=== PATIENT | female | born 1975 | race Caucasian/White ===

== ENCOUNTER 2020-02-29 09:31 | Outpatient (CLI) | payer OTHER, SELFPAY ==
--- NOTE | ~2020-02-29 | MM_ITS ---
EXAMINATION: MM screening [facility] w khurram HISTORY: Screening mammogram TECHNIQUE: Craniocaudal and mediolateral oblique 3-D tomosynthesis images were obtained and synthetic 2-D images were generated. CAD analysis was submitted and interpreted. COMPARISON: Comparison to multiple prior studies sequentially, with oldest reviewed study dated 08/24. BREAST PARENCHYMAL COMPOSITION: The breasts are heterogeneously dense, which may obscure small masses . FINDINGS: There is no evidence of suspicious mass, calcification, or architectural distortion to sugg est malignancy in either breast. There has been no suspicious interval change. IMPRESSION: 1. No mammographic evidence of malignancy. 2. Recommend routine screening mammography in one year. BI-RADS Category 1: Negative Reviewed, dictated and finalized at location A.
== END 2020-02-29 09:32 | disposition home or self-care (01) ==
LOC: ANHIMG 09:37
PROVIDERS: Visit Provider Obstetrics & Gynecology
DX: Z12.31 Encounter for screening mammogram for malignant neoplasm of breast (principal)
CPT/HCPCS: 77063; 77067

== ENCOUNTER 2021-03-21 15:55 | Outpatient (CLI) | payer OTHER, SELFPAY ==
--- NOTE | ~2021-03-21 | MM_ITS ---
EXAMINATION: MM screening [facility] w khurram HISTORY: Screening TECHNIQUE: Craniocaudal and mediolateral oblique 3-D tomosynthesis images were obtained and synthetic 2-D images were generated. CAD analysis was submitted and interpreted. COMPARISON: Comparison to multiple prior studies sequentially, with oldest reviewed study dated 08/24. BREAST PARENCHYMAL COMPOSITION: The breasts are heterogeneously dense, which may obscure small masses . FINDINGS: There is focal asymmetry in the subareolar location of the left breast on MLO view. The rig ht breast is stable without evidence for malignancy. IMPRESSION: 1. Subtle left breast asymmetry on MLO view. 2. Additional mammographic views and possible breast ultrasound are recommended. BI-RADS Category 0: Incomplete: Needs additional imaging evaluation. Reviewed, dictated and finalized at location A. IMPRESSION: 1. Subtle left breast asymmetry on MLO view. 2. Additional mammographic views and possible breast ultrasound are recommended . BI-RADS Category 0: Incomplete: Needs additional imaging evaluation.
== END 2021-03-21 15:56 | disposition home or self-care (01) ==
PROVIDERS: Visit Provider Obstetrics & Gynecology
DX: Z12.31 Encounter for screening mammogram for malignant neoplasm of breast (principal); R92.8 Other abnormal and inconclusive findings on diagnostic imaging of breast
CPT/HCPCS: 77063; 77067

== ENCOUNTER 2021-04-18 12:17 | Outpatient (CLI) | payer OTHER, SELFPAY ==
--- NOTE | ~2021-04-18 | MM_ITS ---
EXAMINATION: MM diagnostic mammo unilat LT HISTORY: A subtle left breast asymmetry on screening MLO view of 03/21/2021 TECHNIQUE: Additional 3-D tomosynthesis images of the left breast were performed and synthetic 2-D im ages were generated. CAD analysis was submitted and interpreted. COMPARISON: 03/21/2021 bilateral digital screening mammogram FINDINGS: No reproducible mass or architectural distortion is evident. IMPRESSION: 1. No mammographic evidence of malignancy 2. Routine mammographic screening is recommended BI-RADS Category 1: Negative Reviewed, dictated and finalized at location A.
== END 2021-04-18 12:18 | disposition home or self-care (01) ==
LOC: ANHIMG 12:19
PROVIDERS: Visit Provider Obstetrics & Gynecology
DX: R92.8 Other abnormal and inconclusive findings on diagnostic imaging of breast (principal)
CPT/HCPCS: 77065

== ENCOUNTER 2022-08-28 16:15 | Outpatient (CLI) | payer OTHER, SELFPAY ==
--- NOTE | ~2022-08-28 | MM_ITS ---
EXAMINATION: MM screening [facility] BI w khurram HISTORY: Screening mammogram TECHNIQUE: Craniocaudal and mediolateral oblique 3-D tomosynthesis images were obtained and synthetic 2-D images were generated. CAD analysis was submitted and interpreted. COMPARISON: 04/18/2021, 03/21/2021, 03/20/2020 BREAST PARENCHYMAL COMPOSITION: The breasts are heterogeneously dense, which may obscure small masses . FINDINGS: No suspicious mass, calcification, or architectural distortion are identified in either angelina ast to suggest malignancy. There has been no suspicious interval change. IMPRESSION: 1. No mammographic evidence of malignancy. 2. Recommend routine screening mammography in one year. BI-RADS Category 1: Negative Reviewed, dictated and finalized at location A. RVISOR YARD
== END 2022-08-28 16:16 | disposition home or self-care (01) ==
PROVIDERS: Visit Provider Internal Medicine
DX: Z12.31 Encounter for screening mammogram for malignant neoplasm of breast (principal)
CPT/HCPCS: 77063; 77067

== ENCOUNTER 2024-09-14 07:54 | Outpatient (CLI) | payer OTHER, SELFPAY ==
--- NOTE | ~2024-09-14 | MM_ITS ---
EXAMINATION: MM screening [facility] BI w khurram HISTORY: Screening TECHNIQUE: Craniocaudal and mediolateral oblique 3-D tomosynthesis images were obtained and synthetic 2-D images were generated. CAD analysis was submitted and interpreted. COMPARISON: Examination was compared with multiple prior studies performed most recently on 08/28/2022 and dating back to 02/26/2019 BREAST PARENCHYMAL COMPOSITION: The breasts are heterogeneously dense, which may obscure small masses . FINDINGS: Stable parenchymal pattern without suspicious microcalcifications, architectural distortion, discrete masses or significant asymmetry. Punctate calcifications detected bilaterally, stable and benign in appearance. IMPRESSION: 1. No mammographic evidence of malignancy. 2. Recommend routine screening mammography in one year. BI-RADS Category 2: Benign findings Reviewed, dictated and finalized at location A. INSTRUCTOR
--- OUTSIDE RECORDS SUMMARY | 2024-09-21 11:16 | XMS_ITS | Clinical Summary ---
Author Organization [facility] Address [address] [place] [address]. 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 DIRECTOR Gender Identity Not on file Sexual Orientation Not on file Plan of Treatment Health Maintenance Due Date Last Done Comments Cervical Cancer Screening Pa p Smear (Age 30 to 64) Every 3 Years 1973 Colorectal Cancer Screening Colonoscopy (10 Years) 1973 Annual Physical 1976 Hepatitis C 1991 Hepatitis B Vaccines (1 of 3 - 19+ 3-dose series) 1992 Cervical Cancer Screening Pa p with HPV Testing (Age 30 to 64) Every 5 Years 2003 Cervical Cancer Screening wi th HPV 2003 Mammogram Screening 2013 DTaP, Tdap and Td Vaccines ( 2 - Td or Tdap) 11/29/2019 11/28/2009 Zoster Vaccines (1 of 2) 2023 COVID-19 Vaccine (3 - 2023-2 5 season) 2024 10/25/2020, 09/27/2020 Influenza Adult (#1) 2024 07/31/2019, 07/28/2018 Meningococcal Vaccine Aged Out No kayden kranthi eligible based on patient's age to complete this topic Pneumococcal Vaccine: Pediatrics (0 to 5 Years) and At-Risk Patients (6 to 64 Years) Aged Out No longer eligible b ased on patient's age to complete this topic RSV Immunizations Under 20 Months Aged Out No longer eligible b ased on patient's age to complete this topic Care Teams Hammer Repairer Relationship Specialty Start Date End Date Non-Staff, Provider PCP - General 09/27/21
--- OUTSIDE RECORDS SUMMARY | 2024-09-21 11:16 | XMS_ITS | Encounter Summary ---
Author Organization [facility] Address [address] [place] [address]. [place] [address] [place] [address] Care Team Providers Care Penciller Name Role Phone Non-Staff, Provider Primary Care Provider Ino lassiter Encounter Details Date Type Department Care Team (Late st Contact Info) Description 06/28/2022 7:00 AM CDT Laboratory Only [facility] [address] [place] [address] Lex Alva MD [address] [place] [address] Social History Tobacco Use Types Packs/Day Years Used Date Smoking Tobacco: Never Assessed Comments Unknown Sex and Gender Information Value Date Recorded Sex Assigned at Not on file Legal Sex Female 6:13 PM CADDIE Gender Identity Not on file Sexual Orientation Not on file COVID-19 Exposure Response Date Recorded In the last 10 days, have yo u been in contact with someone who was confirmed or suspected to have Coronavirus/COVID-19? No / Unsure 06/28/2022 6:53 AM CDT documented as of this encounter Plan of Treatment Not on file documented as of this encounter Procedures Procedure Name Priority Date/Time Associated Diagnosis Comments HEMOGLOBIN, GLYCOSYLATED Routine 06/28/2022 7:17 AM CDT LIPID PANEL Routine 06/28/2022 7:17 AM CDT THYROID STIM HORMONE TSH Routine 06/28/2022 7:17 AM CDT VITAMIN D, 25 OH Routine 06/28/2022 7:17 AM CDT documented in this encounter Results * VITAMIN D, 25 OH (06/28/2022 7:17 AM CDT) Pathologist [facility] [place] VITAMIN D 25 HYDROXY S/P/B 34 30 - 100 NG/ML 06/28/2022 9:22 AM CDT [facility] Comment: ? INTERPRETATION ? DEFICIENT ??<20 ? INSUFFICIENT 20-29 ?SUFFICIENT 30-100 06/28/2022 7:17 AM CDT Lex Alva MD LABORATORY Final Result Performing Organization Address [facility] de Phone Number [facility] [address] [place] [address], [place] [phone] * THYROID STIM HORMONE, TSH (06/28/2022 7:17 AM CDT) [facility] TSH 2.006 0.358 - 3.74 uIU/ML 06/28/2022 9:09 AM CDT [facility] Comment: HIGH DOSES OF BIOTIN MAY INTERFERE WITH THIS TEST RESULT. CORRELATION TO CLINICAL HISTORY AND PRESENTATION RECOMMENDED. 06/28/2022 7:17 AM CDT Lex Alva MD LABORATORY Final Result Performing Organization Address [facility] de Phone Number [facility] [address] [place] [address], [place] [phone] * LIPID PANEL (06/28/2022 7:17 AM CDT) [facility] CHOLESTEROL 183 <200.0 MG/DL 06/28/2022 9:09 AM CDT [facility] TRIGLYCERIDES 23 <150 MG/DL 06/28/2022 9:09 AM CDT [facility] HDL 91 >40.0 MG/DL 06/28/2022 9:09 AM CDT [facility] LDL (CALCULATED) 87 <100 MG/DL 06/28/20 9:09 AM CDT [facility] NON HDL CHOLESTEROL 92 <130 MG/DL 06/28 9:09 AM CDT [facility] CHOL/HDL RATIO 2.0 0.0 - 4.5 06/28/2022 9:09 AM CDT [facility] VLDL CALCULATION 5 5 - 55 MG/DL 06/28/2022 9:09 AM CDT [facility] LIPID INTERPRETATION 06/28/2022 9:09 AM T [facility] Comment: NIH CONCENSUS REPORT RECOMMENDATIONS: ?ADULT ?CHILD ??LOW RISK: ?CHOLESTEROL ? <200 ? <170 ?TRIGLYCERIDE ?<150 ?--- ?HDL ? >=60 ?--- ?LDL ? <100 ? <110 ??BORDERLINE: ?CHOLESTEROL ? 200-239 ?? 170-199 ?TRIGLYCERIDE ?150-199 ? --- ?HDL ?40-59 ?--- ?LDL ? 100-159 ?? 110-129 ??HIGH RISK: ?CHOLESTEROL ? >=240 ?>=200 ?TRIGLYCERIDE ?>=200 ? --- ?HDL ?<40 ?--- ?LDL ? >=160 ?>=130 06/28/2022 7:17 AM CDT us Lex Alva MD LABORATORY Final Result Performing Organization Address [facility]/ZIP Co de Phone Number [facility] [address] [place] [id number], [place] [phone] * HEMOGLOBIN, GLYCOSYLATED (06/28/2022 7:17 AM CDT) HGB A1C 5.2 <5.7 % 06/28/2022 9:12 AM CDT [facility] Comment: INCREASED RISK OF DIABETES <5.7% ?NON-DIABETES 5.7-6.4% INCREASED RISK FOR FUTURE DIABETES > OR = 6.5 CONSISTENT WITH DIABETES STANDARDS OF MEDICAL CARE IN DIABETES-2010 DIABETES CARE, 33(SUPP 1): S1-S61,2010 ESTIMATED AVG GLUCOSE 103 mg/dL 06/28/2022 9:12 AM CDT [facility] 06/28/2022 7:17 AM CDT us Lex Alva MD LABORATORY Final Result Performing Organization Address [facility]/ZIP Co de Phone Number [facility] [address] [place] [address], [place] [phone] documented in this encounter Visit Diagnoses Not on filedocumented in this encounter Care Teams Penciller Relationship Specialty Start Date End Date Non-Staff, Provider PCP - General 09/27/21 documented as of this encounter
--- OUTSIDE RECORDS SUMMARY | 2024-09-21 11:16 | XMS_ITS | Encounter Summary ---
Author Organization [facility] Address [address] [place] [address]. 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 No / Unsure 06/28/2022 6:53 AM CDT documented as of this encounter Plan of Treatment Not on file documented as of this encounter Visit Diagnoses Not on filedocumented in this encounter Care Teams Java Core Developer Relationship Specialty Start Date End Date Non-Staff, Provider PCP - General 09/27/21 documented as of this encounter
--- OUTSIDE RECORDS SUMMARY | 2024-09-21 11:17 | XMS_ITS | Referral Summary ---
Author Organization [facility] Address [address] [place] [address] Care Team Providers Care Coordinator Integrated Marketing Name Role Phone Jonathan Woods MD Primary Care Provider Allergies No known active allergies Medications albuterol HFA (PROVENTIL HFA,VENTOLIN HFA,PROAIR HFA) 90 mcg/actuation inhaler Inhale 2 puffs 4 (four) times a day 3 each 02/25/2023 Active Active Problems Problem Noted Date Diagnosed Date Positive colorectal cancer screening using Colog uard test 03/22/2023 Encounter for screening colonoscopy 03/22/2023 Atopic rhinitis 02/06/2014 Overview (12/28/2016): ALLERGIC RHINITIS NOS Immunizations Name Administration Dates Next Due Hep A, Adult 08/27/2012 Influenza, Quadrivalent, Ayde l Culture-based MDCK, Preservative Free, Antibiotic Free, Intramuscular 07/18/2022,07/22/2017 Influenza, Quadrivalent, Spl it, Intramuscular 07/31/2019 Influenza, Quadrivalent, Spl it, Preservative Free, Intramuscular 07/08/2020,07/28/2018,07/27/2018 Influenza, Trivalent, IM (MDV) 07/06/2021 Influenza, Trivalent, Preser vative Free, Intramuscular 07/12/2016 Influenza, Unspecified 07/05/2023,07/18/2022 Moderna SARS-CoV-2 Monovalen t Vaccination (12+ YRS) 07/05/2023,07/18/2022 Tdap 11/28/2009 ZOSTER Recombinant 07/05/2023 Social History Tobacco Use Types Packs/Day Years Used Date Smoking Tobacco: Never Tobacco Cessation:Counseling Given: Yes Alcohol Use Standard Drinks/Week Comments Yes 0 (1 standard drink = 0.6 oz pur e alcohol) PHQ-2 Answer Date Recorded PHQ-2 Total Score (If total score is 3 or more points, staff should administer the PHQ-9) 0 02/25/2023 Personal Safety Answer Date Recorded Have you ever been in or are you currently in a harmful physical or emotional relationship or is someone making you feel afraid or unsafe? 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 Gender Identity Not on file Sexual Orientation Not on file Last Filed Vital Signs Vital Sign Reading Time Taken Comments Blood Pressure 112/73 04/11/2023 10:34 AM CDT Pulse 53 04/11/2023 10:34 AM CDT Temperature 36.7 ??C (98 ??F) 04/11/2023 10:34 AM CDT Respiratory Rate 16 04/11/2023 10:34 AM CDT Oxygen Saturation 100% 04/11/2023 10:34 AM CDT Inhaled Oxygen Concentration - - Weight 67.1 kg (148 lb) 02/25/2023 3:44 PM CDT Height 162.6 cm (5' 4 ) 02/25/2023 3:44 PM CDT Body Mass Index 25.4 02/25/2023 3:44 PM CDT Plan of Treatment Not on file Procedures Procedure Name Priority Date/Time Associated Diagnosis Comments COLONOSCOPY 04/11/2023 9:22 AM CDT SCREENING MAMMOGRAM Schedule Routine, Read Routine (OP Routine) 08/28/2022 HM PAP SMEAR WITH HPV Routine 02/25/2019 from Last 3 Months or Most Recently Relevant to Health Maintenance Results * COLONOSCOPY (04/11/2023 9:22 AM CDT) Anatomical Region Laterality Modality Other Narrative Procedure Note Hernan Piña MD - 04/11/2023 9:22 AM CDT [facility] Patient Name: Vida Mcfadden Procedure Date: 04/11/2023 9:22 AM Date of : 1975 Admit Type: Outpatient Age: 47 Gender: Female Attending MD: Hernan Piña M.D. Room: [facility] END[facility]COPY [facility]OM 2 Note Status: Finalized Patient Profile: This is a 47 year old female with no significantpast medical history here for colonoscopy for positive Cologuard test. No prior colonoscopy and no family history of colon cancer Procedure: Colonoscopy Indications: This is the patient's first colonoscopy, Positive Cologuard test Referring MD: Jonathan Woods M.D. Providers: Hernan Piña M.D. Impression: - The examined portion of the ileum was normal. - One 5 mm polyp in the descending colon, removedwith a cold snare. Resected and retrieved. - Internal hemorrhoids. Recommendation: - Patient has a contact number available for emergencies. The signs and symptoms of potential delayed complications were discussed with thepatient. Return to normal activities tomorrow. Written discharge instructions were provided to thepatient. - Discharge patient to home (with escort). - Resume previous diet. - Continue present medications. - Await pathology results. - Repeat colonoscopy in 5 years for surveillancebased on pathology results. - Return to primary care physician as previously scheduled. Medicines: Monitored Anesthesia Care Complications: No immediate complications. Estimated Blood Loss: Estimated blood loss was minimal. Procedure: Pre-Anesthesia Assessment: - Prior to the procedure, a History and Physicalwas performed, and patient medications and allergieswere reviewed. The patient is competent. The risks and benefits of the procedure and the sedation optionsand risks were discussed with the patient. Allquestions were answered and informed consent was obtained. Patient identification and proposed procedure were verified by the physician, the anesthesiologist and the dental equipment technician in the endoscopy suite. MentalStatus Examination: normal. Prophylactic Antibiotics: The patient does not require prophylactic antibiotics. Prior Anticoagulants: The patient has taken no anticoagulant or antiplatelet agents. Afterreviewing the risks and benefits, the patient was deemed in satisfactory condition to undergo the procedure.The anesthesia plan was to use monitored anesthesiacare (MAC). Immediately prior to administration of medications, the patient was re-assessed foradequacy to receive sedatives. The heart rate, respiratory rate, oxygen saturations, blood pressure, adequacyof pulmonary ventilation, and response to care were monitored throughout the procedure. The physical status of the patient was re-assessed after the procedure. The benefits, risks and alternatives of theprocedure and sedation were discussed and informed consentwas obtained. All questions were answered. Please referto the signed informed consent document in the medical record. The scope was passed under direct vision.The Pediatric Colonoscope PCF-H190L [id number] was introduced through the anus and advanced to the the terminal ileum. The bowel preparation used wasMiralax via split dose instruction. The bowel preparationused was bisacodyl tablets via split dose instruction.The colonoscopy was performed without difficulty. The patient tolerated the procedure well. The qualityof the bowel preparation was adequate. Bowel prep was administered using a split dose. Findings: The perianal and digital rectal examinations were normal. The terminal ileum appeared normal. A 5 mm polyp was found in the descending colon. The polyp wassessile. The polyp was removed with a cold snare. Resection and retrieval were complete. Internal hemorrhoids were found during retroflexion. Hernan Piña M.D. 04/11/2023 10:40:55 AM Number of Addenda: 0 Note Initiated On: 04/11/2023 9:22 AM Procedure Code(s): --- Professional --- 89540, Colonoscopy, flexible; with removal of tumor(s), polyp(s), or other lesion(s) by snare technique --- Technical --- 76905, Colonoscopy, flexible; with removal of tumor(s), polyp(s), or other lesion(s) by snare technique Diagnosis Code(s): --- Professional --- K64.8, Other hemorrhoids D12.4, Benign neoplasm of descending colon R19.5, Other fecal abnormalities --- Technical --- K64.8, Other hemorrhoids D12.4, Benign neoplasm of descending colon R19.5, Other fecal abnormalities CPT copyright 2020 [employer]. All rights reserved. The codes documented in this report are preliminary and upon senior commercial loan officer reviewmay be revised to meet current compliance requirements. Recognized by the [employer] for promoting quality in endoscopy Hernan Piña MD ENDOSCOPY PROCEDURES Final Resul t * Screening Mammogram (08/28/2022) Anatomical Region Laterality Modality Breast N/A Mammography Jonathan Woods MD IMG MAMMO PROCEDURES Fi nal Result * HM PAP SMEAR WITH HPV (02/25/2019) Pap smear Normal Historical Provider HEALTH MAINTENANCE Final Result from Last 3 Months or Most Recently Relevant to Health [place] [address] [place] [address] [facility] [place] [address] [facility] [employer] Advance Directives For more information, please contact: [phone] * Full Code (Latest Code Status on File) Date Activated Date Inactivated Comments 04/11/2023 8:58 AM 04/11/2023 3:05 PM * Full Code Date Activated Date Inactivated Comments 04/11/2023 8:58 AM 04/11/2023 8:58 AM Care Teams Coordinator Integrated Marketing Relationship Specialty Start Date End Date Jonathan Woods MD PCP - General 08/27/12
--- OUTSIDE RECORDS SUMMARY | 2024-09-21 11:17 | XMS_ITS | Encounter Summary ---
Author Organization [facility] Address [address] [place] [address] Care Team Providers Care Education Administrative Assistant Name Role Phone Jonathan Woods MD Primary Care Provider Encounter Details Date Type Department Care Team (Late st Contact Info) Description 09/03/2022 Telephone [facility] Primary Care at [address] [place] [address] Jonathan Woods MD [address] [place] [address] [address] [place] [address] Social History Tobacco Use Types Packs/Day Years Used Date Smoking Tobacco: Never Alcohol Use Standard Drinks/Week Comments Yes 0 [...] on file Legal Sex Female 5:06 PM SENIOR COLDFUSION DEVELOPER Gender Identity Not on file Sexual Orientation Not on file documented as of this encounter Miscellaneous Notes * Telephone Encounter - Irena Templeton - 06/04/2023 8:32 AM CDT Order placed and faxed to [facility]. * Telephone Encounter - Irena Templeton - 09/03/2022 11:03 AM CST Noted. Order will be placed closer to exam due date. Performed at [facility] on 08/28/22 OR COLDFUSION DEVELOPER * Telephone Encounter - Xiao Baez MA - 09/03/2022 10:23 AM CST Patient aware Sent to referrals OR COLDFUSION DEVELOPER * Telephone Encounter - Xiao Baez MA - 09/03/2022 10:22 AM CST ----- Message from Jonathan Woods MD sent at 08/31/2022 5:21 PM SENIOR COLDFUSION DEVELOPER ----- Please tell the patient her mammograms are just fine please set up for next year's bilateral screening mammogram OR COLDFUSION DEVELOPER documented in this encounter Plan of Treatment Not on file documented as of this encounter Visit Diagnoses Not on filedocumented in this encounter Care Teams Education Administrative Assistant Relationship Specialty Start Date End Date Jonathan Woods MD PCP - General 08/27/12 documented as of this encounter
--- OUTSIDE RECORDS SUMMARY | 2024-09-21 11:17 | XMS_ITS | Encounter Summary ---
Author Organization [facility] Address [address] [place] [address] Care Team Providers Care Bus Person Dishwasher Name Role Phone Jonathan Woods MD Primary Care Provider Encounter Details Date Type Department Care Team (Late st Contact Info) Description 03/21/2023 Orders Only [facility] Primary Care at [address] [place] [address] Jonathan Woods MD [address] [place] [address] [address] [place], [place] [id number] Positive colorectal cancer screening using Cologuard test (Primary Dx) Social History Tobacco Use Types Packs/Day Years Used Date Smoking Tobacco: Never Alcohol Use Standard Drinks/Week Comments Yes 0 (1 standard drink = 0.6 oz pur e alcohol) PHQ-2 Answer Date Recorded PHQ-2 Total Score (If total score is 3 or more points, staff should administer the PHQ-9) 0 02/25/2023 Comments No Sex and Gender Information Value Date Recorded Sex Assigned at Not on file Legal Sex Female 5:06 PM UNDERWRITING 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
--- OUTSIDE RECORDS SUMMARY | 2024-09-21 11:17 | XMS_ITS | Encounter Summary ---
Author Organization [facility] Address [address] [place] [address] Care Team Providers Care Broadcast Operations Manager Name Role Phone Jonathan Woods MD Primary Care Provider Encounter Details Date Type Department Care Team (Late st Contact Info) Description 01/04/2021 Orders Only [facility] [address] [facility] [address] [place] [address] Jonathan Woods MD [address] [place] [address] [address] [place] [address] Preventative health care (Primary Dx) Social History Tobacco Use Types Packs/Day Years Used Date Smoking Tobacco: Never Alcohol Use Standard Drinks/Week Comments Yes 0 (1 standard drink = 0.6 oz pur e alcohol) PHQ-2 Answer Date Recorded PHQ-2 Score 0 05/15/2019 Comments Unknown Sex and Gender Information Value Date Recorded Sex Assigned at Not on file 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 <170 mg/dL ??Borderline high: ??170-199 mg/dL ??High: ? >or= 200 mg/dL Ages > or = 20 years ??Desirable: ?<200 mg/dL ??Borderline high: ??200-239 mg/dL ??High: ? >or= 240 mg/dL Literature References: 1. Expert Panel on Integrated Guidelines for Cardiovascular Health and Risk Reduction in Children and Adolescents. Pediatrics 2011;128:S213 2. NCEP Expert Panel. Circulation 2004;110:227 Current Interpretive Data was last revised on 2018. Triglycerides 53 <=149 mg/dL [facility] ([place]) Comment: Interpretive Data Ages < or = 9 years ??Acceptable: ? <75 mg/dL ??Borderline high: ??75-99 mg/dL ??High: ? >or= 100 mg/dL Ages 10 to 20 years ??Acceptable: ? <90 mg/dL ??Borderline high: ??90-129 mg/dL ??High: ? >or= 130 mg/dL Ages > or = 20 years ??Desirable: ?<150 mg/dL ??Borderline high: ??150-199 mg/dL ??High: ? 200-499 mg/dL ?Very high: ?? >or= 499 mg/dL Literature References: 1. Expert Panel on Integrated Guidelines for Cardiovascular Health and Risk Reduction in Children and Adolescents. Pediatrics 2011;128:S213 2. NCEP Expert Panel. Circulation 2004;110:227 Current Interpretive Data was last revised on 2018. HDL 84 >=40 mg/dL [facility] ([place]) Comment: Interpretive Data Ages < or = 19 years ??Acceptable: ? >45 mg/dL ??Borderline low: ?? 40-45 mg/dL ??Low: ? <40 mg/dL Ages > or = 20 years ??Desirable: ?>or= 60 mg/dL ??Low: ? <40 mg/dL Literature References: 1. Expert Panel on Integrated Guidelines for Cardiovascular Health and Risk Reduction in Children and Adolescents. Pediatrics 2011;128:S213 2. NCEP Expert Panel. Circulation 2004;110:227 Current Interpretive Data was last revised on 2018. LDL, calculated 71 <=129 mg/dL [facility]ALE[facility] HUDSON ([place]) Comment: Interpretive Data Ages < or = 19 years ??Acceptable: ? <110 mg/dL ??Borderline high: ??110-129 mg/dL ??High: ?>or= 130 mg/dL Ages > or = 20 years ??Optimal: ? <100 mg/dL ??Near optimal: ?100-129 mg/dL ??Borderline high: ?? 130-159 mg/dL ??High: ?>160 mg/dL Literature References: 1. Expert Panel on Integrated Guidelines for Cardiovascular Health and Risk Reduction in Children and Adolescents. Pediatrics 2011;128:S213 2. NCEP Expert Panel. Circulation 2004;110:227 Current Interpretive Data was last revised on 2018. Non-HDL Cholesterol 82 mg/dL [facility] HUDSON ([place]) Comment: Interpretive Data Ages < or = 19 years ??Acceptable: ?<120 mg/dL ??Borderline high: ??120-144 mg/dL ??High: ?>145 mg/dL Ages > or = 20 years ??When triglycerides are >200 mg/dL, Non-HDL cholesterol is a secondary target of ? therapy with treatment goals that are 30 mg/dL greater than the LDL cholesterol target. ? Literature References: 1. Expert Panel on Integrated Guidelines for Cardiovascular Health and Risk Reduction in Children and Adolescents. Pediatrics 2011;128:S213 2. NCEP Expert Panel. Circulation 2004;110:227 Current Interpretive Data was last revised on 2018. Chol/HDL ratio 2 [facility] ([place]) Blood specimen (specimen) 03/17/2021 6:43 AM CDT 03/17/2021 7:24 AM CDT Narrative [facility] ([place]) - 03/17/2021 8:38 AM CDT fasting us Jonathan Woods MD LAB BLOOD ORDERABLES Fi nal Result [facility] ([place]) [address] [facility] [place] [address] * Comprehensive metabolic panel (03/17/2021 6:43 AM CDT) Sodium 137 135 - 145 mmol/L [facility] ([place]) Potassium, pl 4.3 3.3 - 4.9 mmol/L [facility] ([place]) Chloride 103 97 - 110 mmol/L [facility] ([place]) CO2 23 22 - 32 mmol/L [facility] ([place]) Anion gap 11 2 - 15 mmol/L [facility] ([place]) BUN 20 8 - 25 mg/dL [facility] ([place]) Creatinine 0.68 0.60 - 1.10 mg/dL [facility] ([place]) Glucose 98 70 - 199 mg/dL [facility] ([place]) Comment: Interpretive Data Fasting glucose >/= 126 mg/dl is diagnostic for diabetes. ?? Fasting is defined as no caloric intake for at least 8 hours. Fasting glucose between 100 mg/dl to 125 mg/dl is diagnostic of prediabetes. In a patient with classic symptoms of hyperglycemia or hyperglycemic crisis, a random glucose >/= 200 mg/dl is diagnostic for diabetes. In the absence of unequivocal hyperglycemia, results should be confirmed by repeat testing. The classification and Diagnosis of Diabetes Diabetes Care 2017;40 (Suppl. 1):S11. Current interpretive data was last revised 2017. Calcium 9.1 8.5 - 10.3 mg/dL [facility] ([place]) Bilirubin, total 0.5 0.1 - 1.2 mg/dL [facility] ([place]) Protein, pl 6.7 6.5 - 8.5 g/dL [facility] ([place]) Albumin 4.5 3.5 - 5.0 g/dL [facility] ([place]) Alk phos 43 40 - 130 Units/L [facility] ([place]) ALT 16 7 - 45 Units/L [facility] ([place]) AST 24 10 - 45 Units/L [facility] ([place]) Blood specimen (specimen) 03/17/2021 6:43 AM CDT 03/17/2021 7:24 AM CDT Narrative [facility] ([place]) - 03/17/2021 8:38 AM CDT fasting us Jonathan Woods MD LAB BLOOD ORDERABLES Fi nal Result [facility] ([place]) [address] [facility] [place] [address] documented in this encounter Visit Diagnoses Diagnosis Preventative health care- Primary Routine general medical examination at a health care facility Preventative health care Routine general medical examination at a health care facility documented in this encounter Care Teams Broadcast Operations Manager Relationship Specialty Start Date End Date Jonathan Woods MD PCP - General 08/27/12 documented as of this encounter
--- OUTSIDE RECORDS SUMMARY | 2024-09-21 11:17 | XMS_ITS | Encounter Summary ---
Author Organization [facility] Healthcare Address [address] [place] [address] Care Team Providers Care Bilingual Sales Assistant Name Role Phone Jonathan Woods MD Primary Care Provider Reason for Visit * Auth/Cert (Routine) Specialty Diagnoses / Procedures Referred By Contac t Referred To Contact Diagnoses Positive colorectal cancer screening using Cologuard test Encounter for screening colonoscopy Positive colorectal cancer screening using Cologuard test [R19.5] Encounter for screening colonoscopy [Z12.11] Procedures WI COLONOSCOPY FLX DX W/COLLJ SPEC WHEN PFRMD COLONOSCOPY Referral ID Status Reason Start Date Expiration Date Visits Re quested Visits Authorized [id number] 1 1 Encounter Details Date Type Department Care Team (Latest Contact Info) Description 04/11/2023 8:19 AM CDT - 04/11/2023 11:00 AM CDT Hospital Encounter [facility] [address] [place] [address] Hernan Piña MD [address] [place] [address] [address] [place] [address] Positive colorectal cancer screening using Cologuard test; Encounter for screening colonoscopy Discharge Disposition: Discharge to home or self care Social History Tobacco Use Types Packs/Day Years [...] on file 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 Gender Identity Not on file Sexual Orientation Not on file documented as of this encounter Last Filed Vital Signs Vital Sign Reading Time Taken Comments Blood Pressure 112/73 04/11/2023 10:34 AM CDT Pulse 53 04/11/2023 10:34 AM CDT Temperature 36.7 ??C (98 ??F) 04/11/2023 10:34 AM CDT Respiratory Rate 16 04/11/2023 10:34 AM CDT Oxygen Saturation 100% 04/11/2023 10:34 AM CDT Inhaled Oxygen Concentration - - Weight - - Height - - Body Mass Index - - documented in this encounter Medications at Time of Discharge albuterol HFA (PROVENTIL HFA,VENTOLIN HFA,PROAIR HFA) 90 mcg/actuation inhaler Inhale 2 puffs 4 (four) times a day 3 each 11 02/25/2023 documented as of this encounter Discharge Disposition Disposition Code Departure Means Destination Comment s Discharge to home or self care documented in this encounter H&P Notes * Hernan Piña MD - 04/11/2023 8:52 AM CDT PRE-PROCEDURE HISTORY & PHYSICAL NOTE (Presedation assessment per Anesthesia Team) 04/11/2023 8:52 AM Patient: Vida Smart, date of 1975 Procedure(s) planned: Colonoscopy Indication(s): Positive Cologuard History: Patient is a 47 y.o. with no significant past medical history here for colonoscopy for positive Cologuard test. 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 Family History Problem Relation Age of Onset Diabetes type II Father 63 Diabetes -Type 2; Prostate cancer Father Cancer, prostate; reports that she has never smoked. She does not have any smokeless tobacco history on file. No current facility-administered medications on file prior to encounter. Current Outpatient Medications on File Prior to Encounter Medication Sig Dispense Refill albuterol HFA (PROVENTIL HFA,VENTOLIN HFA,PROAIR HFA) 90 mcg/actuation inhaler Inhale 2 puffs 4 (four) times a day 3 each 11 Physical Exam: There were no vitals taken for this visit. GENERAL: The patient is alert, oriented and in no apparent distress. HEENT: no jaundice LUNGS: non-labored ABDOMEN: Soft, no tenderness NEURO: Non-focal. ASA class per anesthesia Sedation Plan: Monitored Anesthesia Care (MAC) by the anesthesia team. Procedure Plan: # colonoscopy Based on the above assessment, we will perform the procedures indicated above. I have discussed the plan, risks, benefits and alternatives with the patient or guardian. When assessment above was not obtained immediately before the procedure, I have reassessed this patient and there are no changes. Hernan Piña MD documented in this encounter Procedure Notes * Hernan Piña MD - 04/11/2023 9:22 AM CDTAssociated Order(s): COLONOSCOPY [facility] Patient Name: Vida Smart Procedure Date: 04/11/2023 9:22 AM Date of : 1975 Admit Type: Outpatient Age: 47 Gender: Female Attending MD: Hernan Piña M.D. Room: [facility] 2 Note Status: Finalized Patient Profile: This is a 47 year old female with no significant past medical history here for colonoscopy for positive Cologuard test. No prior colonoscopy and no family history of colon cancer Procedure: Colonoscopy Indications: This is the patient's first colonoscopy, Positive Cologuard test Referring MD: Jonathan Woods M.D. Providers: Hernan Piña M.D. Impression: - The examined portion of the ileum was normal. - One 5 mm polyp in the descending colon, removed with a cold snare. Resected and retrieved. - Internal hemorrhoids. Recommendation: - Patient has a contact number available for emergencies. The signs and symptoms of potential delayed complications were discussed with the patient. Return to normal activities tomorrow. Written discharge instructions were provided to the patient. - Discharge patient to home (with escort). - Resume previous diet. - Continue present medications. - Await pathology results. - Repeat colonoscopy in 5 years for surveillance based on pathology results. - Return to primary care physician as previously scheduled. Medicines: Monitored Anesthesia Care Complications: No immediate complications. Estimated Blood Loss: Estimated blood loss was minimal. Procedure: Pre-Anesthesia Assessment: - Prior to the procedure, a History and Physical was performed, and patient medications and allergies were reviewed. The patient is competent. The risks and benefits of the procedure and the sedation options and risks were discussed with the patient. All questions were answered and informed consent was obtained. Patient identification and proposed procedure were verified by the physician, the anesthesiologist and the dental lab technician in the endoscopy suite. Mental Status Examination: normal. Prophylactic Antibiotics: The patient does not require prophylactic antibiotics. Prior Anticoagulants: The patient has taken no anticoagulant or antiplatelet agents. After reviewing the risks and benefits, the patient was deemed in satisfactory condition to undergo the procedure. The anesthesia plan was to use monitored anesthesia care (MAC). Immediately prior to administration of medications, the patient was re-assessed for adequacy to receive sedatives. The heart rate, respiratory rate, oxygen saturations, blood pressure, adequacy of pulmonary ventilation, and response to care were monitored throughout the procedure. The physical status of the patient was re-assessed after the procedure. The benefits, risks and alternatives of the procedure and sedation were discussed and informed consent was obtained. All questions were answered. Please refer to the signed informed consent document in the medical record. The scope was passed under direct vision. The Pediatric Colonoscope PCF-H190L [id number] was introduced through the anus and advanced to the the terminal ileum. The bowel preparation used was Miralax via split dose instruction. The bowel preparation used was bisacodyl tablets via split dose instruction. The colonoscopy was performed without difficulty. The patient tolerated the procedure well. The quality of the bowel preparation was adequate. Bowel prep was administered using a split dose. Findings: The perianal and digital rectal examinations were normal. The terminal ileum appeared normal. A 5 mm polyp was found in the descending colon. The polyp was sessile. The polyp was removed with a cold snare. Resection and retrieval were complete. Internal hemorrhoids were found during retroflexion. Hernan Piña M.D. 04/11/2023 10:40:55 AM Number of Addenda: 0 Note Initiated On: 04/11/2023 9:22 AM Procedure Code(s): --- Professional --- 73638, Colonoscopy, flexible; with removal of tumor(s), polyp(s), or other lesion(s) by snare technique --- Technical --- 89899, Colonoscopy, flexible; with removal of tumor(s), polyp(s), or other lesion(s) by snare technique Diagnosis Code(s): --- Professional --- K64.8, Other hemorrhoids D12.4, Benign neoplasm of descending colon R19.5, Other fecal abnormalities --- Technical --- K64.8, Other hemorrhoids D12.4, Benign neoplasm of descending colon R19.5, Other fecal abnormalities CPT copyright 2020 [employer]. All rights reserved. The codes documented in this report are preliminary and upon software test automation engineer review may be revised to meet current compliance requirements. Recognized by the [employer] for promoting quality in endoscopy documented in this encounter Miscellaneous Notes * Perioperative Nursing Note - Audra Kovacs RN - 04/11/2023 10:52 AM CDT 1045-Dr Piña at bedside. Spoke with pt re: procedure. Return for repeat colonoscopy in 5 years. documented in this encounter Plan of Treatment Not on file documented as of this encounter Procedures Procedure Name Priority Date/Time Associated Diagnosis Comments SURGICAL PATHOLOGY STAT 04/11/2023 1: 28 PM CDT Positive colorectal cancer screening using Cologuard test Encounter for screening colonoscopy COLONOSCOPY 04/11/2023 9:22 AM CDT COLON REMOVAL SNARE 04/11/2023 9 :19 AM CDT Positive colorectal cancer screening using Cologuard test Encounter for screening colonoscopy POCT HCG, URINE Routine 04/11/2023 9:03 AM CDT documented in this encounter Results * Surgical pathology (04/11/2023 1:28 PM CDT) Tissue (Polyp(s), colon/colorectal, esophageal, gastric) 04/11/2023 9:50 AM CDT Narrative PATHOLOGY [facility]) - 04/12/2023 10:56 AM CDT EPIC results best viewed via link to PDF [facility] Department of Pathology [address] [place] [address] Note to Patients: This report may contain a detailed description of human tissue sent by a health care provider to the laboratory for pathologic evaluation. The content of this report is essential for diagnosis and may provide important critical findings. This information may be unfamiliar to patients to review without a medical professional present. It is advised that the patient review this report in the presence of a health care provider who can answer questions and explain the details. Final Report Patient Name: ??VIDA SMART Address: ??[address] [place] [address], ??[place] ??[address] Gender: ??F : ??1975 (Age: 47) Service: ??Gastro Location: ??[facility] Hospital #: ??[id number] Patient Type: ??[facility] Accession # ?[id number] Taken: ??04/11/2023 Received: ??04/11/2023 Accessioned: ??04/11/2023 Reported: ??04/12/2023 Physician(s):Hernan Piña MD Diagnosis: Descending colon polyp, biopsy: ? - Hyperplastic polyp. Timmy Rosario M.D. Report Electronically Reviewed and Signed Out By ??Timmy Rosario M.D. ??04/12/2023 10:56:44 Specimen(s) Received: A: Descending polyp x 1 Microscopic Description: Sections show a hyperplastic polyp. ??No features of a sessile serrated adenoma are seen. ??There is no evidence of dysplasia or malignancy. Clinical History: Positive colorectal cancer screening using Cologuard test. ??Screening colonoscopy. ??Colonoscopy. Gross Description: The specimen is submitted in a single formalin filled container labeled VIDA SMART and descending polyp . ??It is two gonzalez two 3 mm fragments. ??All in one cassette. Kari Solano R.N., P.A./Magali Philippe M.D. REPORT IMAGES AND SCANNED DOCUMENTS, IF INCLUDED, ONLY VIEWABLE IN PDF VERSION OF REPORT The performance characteristics of some immunohistochemical stains, fluorescence in-situ hybridization tests and immunophenotyping by flow cytometry cited in this report (if any) were determined by the Surgical Pathology Department at [facility] as part of an ongoing quality assurance clerk program and in compliance with federally mandated regulations drawn from the Clinical Laboratory Improvement Act of 1988 (CLIA '88). ??Some of these tests rely on the use of analyte specific reagents and are subject to specific labeling requirements by the US Food and Drug Administration. ??Such diagnostic tests may only be performed in a facility that is certified by the Department of Health and Human Services as a high complexity laboratory under CLIA '88. The FDA has determined that such clearance or approval is not necessary. ??This test is used for clinical purposes. ??It should not be regarded as investigational or for research. ??Nevertheless, federal rules concerning the medical use of analyte specific reagents require that the following disclaimer be attached to the report: This test was developed and its performance characteristics determined by the Surgical Pathology Department [facility]. ??It has not been cleared or approved by the U. S. Food and Drug Administration. Note for decalcified specimens: This assay has not been validated on decalcified tissues. Results should be interpreted with caution given the possibility of false negativity on decalcified specimens us Hernan Piña MD LAB PATHOLOGY ORDERABLES Final R esult PATHOLOGY [facility]) [address] [place] [address] * COLONOSCOPY (04/11/2023 9:22 AM CDT) Anatomical Region Laterality Modality Other Narrative Procedure Note Hernan Piña MD - 04/11/2023 9:22 AM CDT [facility] Patient Name: Vida Smart Procedure Date: 04/11/2023 9:22 AM Date of : 1975 Admit Type: Outpatient Age: 47 Gender: Female Attending MD: Hernan Piañ M.D. Room: [facility] 2 Note Status: Finalized Patient [...] the physician, the anesthesiologist and the dental lab technician in the endoscopy suite. MentalStatus Examination: [...] passed under direct vision.The Pediatric Colonoscope PCF-H190L [id number] was introduced through the anus and advanced [...] 9:22 AM Procedure Code(s): --- Professional --- 91888, Colonoscopy, flexible; with removal of tumor(s), polyp(s), or other lesion(s) by snare technique --- Technical --- 10882, Colonoscopy, flexible; with removal of tumor(s), polyp(s), or other lesion(s) by snare technique Diagnosis Code(s): --- Professional --- K64.8, Other hemorrhoids D12.4, Benign neoplasm of descending colon R19.5, Other fecal abnormalities --- Technical --- K64.8, Other hemorrhoids D12.4, Benign neoplasm of descending colon R19.5, Other fecal abnormalities CPT copyright 2020 [employer]. All rights reserved. The codes documented in this report are preliminary and upon software test automation engineer reviewmay be revised to meet current compliance requirements. Recognized by the [employer] for promoting quality in endoscopy us Hernan Piña MD ENDOSCOPY PROCEDURES Final Resul t * POCT hCG, urine (04/11/2023 9:03 AM CDT) HCG, ur, POC Negative Lot Number [id number] QC Backgroud Clear Acceptable QC Control Line Acceptable Urine 04/11/2023 9:03 AM CDT Hernan Piña MD POINT OF CARE TEST ORDERABLES Fi nal Result documented in this encounter Visit Diagnoses Diagnosis Positive colorectal cancer screening using Cologuard test Encounter for screening colonoscopy documented in this encounter Admitting Diagnoses Diagnosis Positive colorectal cancer screening using Cologuard test Encounter for screening colonoscopy documented in this encounter Administered Medications Inactive Administered Medications - up to 3 most recent administrations Medication Order MAR Action Action Date Dose Rate Site ondansetron (ZOFRAN) injection 4 mg 4 mg, intravenous, Administer over 2 Minutes, Every 30 min PRN, nausea, vomiting, Starting on Sameera 04/11/23 at 0857, For 2 doses, Recovery (GI), Indications: Nausea and VomitingIndications:Nausea and Vomiting sodium chloride 0.9% flush 0.5-20 mL 0.5-20 mL, intra-catheter, Every 8 hours scheduled, First dose on Sameera 04/11/23 at 0930, Pre-Procedure (GI), Flush volume based on line type and size. sodium chloride 0.9% flush 0.5-20 mL 0.5-20 mL, intra-catheter, As needed, line care, Starting on Sameera 04/11/23 at 0857, Pre-Procedure (GI), Flush volume based on line type and size. Flush before and after each use. sodium chloride 0.9% infusion 30 mL/hr, intravenous, Continuous, Starting on Sameera 04/11/23 at 0930, Pre-Procedure (GI) Restarted 04/11/2023 9:35 AM CDT Rate/Dose Verify 04/11/2023 9:33 AM CDT 30 mL/h r New Bag 04/11/2023 9:12 AM CDT 30 mL/hr 30 mL/hr sodium chloride 0.9% infusion 125 mL/hr, intravenous, Continuous, Starting on Sameera 04/11/23 at 0930, Recovery (GI) documented in this encounter Active and Recently Administered Medications Times are shown in CDT. Scheduled Medication Order 04/09/2023 04/10/2023 04/11/2023 sodium chloride 0.9% flush 0.5-20 mL 0.5-20 mL, intra-catheter, Every 8 hours scheduled, First dose on Sameera 04/11/23 at 0930, Pre-Procedure (GI), Flush volume based on line type and size. 0930 (Due) Continuous Medication Order 04/09/2023 04/10/2023 04/11/2023 sodium chloride 0.9% infusion 30 mL/hr, intravenous, Continuous, Starting on Sameera 04/11/23 at 0930, Pre-Procedure (GI) 0912 (New Bag - Prov ider: Audra Kovacs RN)0933 (Rate/Dose Verify - Provider: Gregory Brnuo MD)0934 (Paused - Provider: Gregory Bruno MD - Comment: Switch to gravity)0935 (Restarted - Provider: Gregory Bruno MD)0954 (Anesthesia Volume Adjustment - Provider: Gregory Bruno MD)1500 (Due: Stopped) sodium chloride 0.9% infusion 125 mL/hr, intravenous, Continuous, Starting on Sameera 04/11/23 at 0930, Recovery (GI) 0930 (Due) PRN Medication Order 04/09/2023 04/10/2023 04/11/2023 ondansetron (ZOFRAN) injection 4 mg 4 mg, intravenous, Administer over 2 Minutes, Every 30 min PRN, nausea, vomiting, Starting on Sameera 04/11/23 at 0857, For 2 doses, Recovery (GI), Indications: Nausea and Vomiting sodium chloride 0.9% flush 0.5-20 mL 0.5-20 mL, intra-catheter, As needed, line care, Starting on Sameera 04/11/23 at 0857, Pre-Procedure (GI), Flush volume based on line type and size. Flush before and after each use. documented in this encounter Orders Medications Ordered That Wally ht Not Have Been Administered Count Last Ordered Date First Ordered Date ondansetron (ZOFRAN) injection 4 mg 1 04/11 sodium chloride 0.9% flush 0.5-20 mL 2 03/24 sodium chloride 0.9% infusion 1 04/11/2023 Discharge Count Last Ordered Date First Orde red Date DISCHARGE PATIENT 1 04/11/2023 documented in this encounter Care Teams Bilingual Sales Assistant Relationship Specialty Start Date End Date Jonathan Woods MD PCP - General 08/27/12 documented as of this encounter
--- OUTSIDE RECORDS SUMMARY | 2024-09-21 11:17 | XMS_ITS | Encounter Summary ---
Author Organization [facility] Address [address] [place] [address] Care Team Providers Care Park Police Name Role Phone Jonathan Woods MD Primary Care Provider Reason for Visit * Reason Onset Date Comments Medical Question/Miscellaneous 01/21/2023 Encounter Details Date Type Department Care Team (Late st Contact Info) Description 01/21/2023 Telephone [facility] Primary Care at [address] [place] [address] Jonathan Woods MD [address] [place] [address] [address] [place], [place] [id number] Medical Question/Miscellaneous Social History Tobacco Use Types Packs/Day Years Used Date Smoking Tobacco: Never Alcohol Use Standard Drinks/Week Comments Yes 0 (1 standard drink = 0.6 oz pur e alcohol) PHQ-2 Answer Date Recorded PHQ-2 Total Score (If total score is 3 or more points, staff should administer the PHQ-9) 0 03/28/2021 Comments No Sex and Gender Information Value Date Recorded Sex Assigned at Not on file 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 adb * Telephone Encounter - Jonathan Woods MD - 01/21/2023 5:03 PM CDT CMP and lipid profile with diagnosis of Z 00.00 * Telephone Encounter - Lila Neves MA - 01/21/2023 4:46 PM CDT [facility] Okay to order labs, if so which ones? * Telephone Encounter - Ashlie Ayala MA - 01/21/2023 8:14 AM CDT Medical Question/Miscellaneous Caller???s Concern: patient has an upcoming appt in February for her preventative. She is asking if thedoctor would like her to have labs before hand and if so can he put the orders in and notify her. Thank you so much Caller???s Call back #: [phone] Does message need to be routed? Yes-Action Needed documented in this encounter Plan of Treatment Not on file documented as of this encounter Visit Diagnoses Not on filedocumented in this encounter Care Teams Park Police Relationship Specialty Start Date End Date Jonathan Woods MD PCP - General 08/27/12 documented as of this encounter
--- OUTSIDE RECORDS SUMMARY | 2024-09-21 11:17 | XMS_ITS | Encounter Summary ---
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
--- OUTSIDE RECORDS SUMMARY | 2024-09-21 11:17 | XMS_ITS | Encounter Summary ---
Author Organization 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
--- OUTSIDE RECORDS SUMMARY | 2024-09-21 11:17 | XMS_ITS | Encounter Summary ---
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 GI department aware. They will contact the pt to schedule. * Telephone Encounter - Meliton Aleman MA - 03/21/2023 2:58 PM CDT Patient made aware of results and agrees to colonoscopy. * Telephone Encounter - Meliton Aleman MA - 03/21/2023 2:56 PM CDT ----- Message from Jonathan Woods MD sent at 03/21/2023 2:06 PM CDT ----- Please explain to the patient that her stool test shows abnormal DNA which can be from polyps or even cancer. She now needs a colonoscopy set up the diagnosis is screening for colon cancer with abnormal stool DNA test documented in this encounter Plan of Treatment Not on file documented as of this encounter Visit Diagnoses Not on filedocumented in this encounter Care Teams Waiter/Waitress Cocktail Lounge Relationship Specialty Start Date End Date Jonathan Woods MD PCP - General 08/27/12 documented as of this encounter
--- OUTSIDE RECORDS SUMMARY | 2024-09-21 11:17 | XMS_ITS | Encounter Summary ---
Author Organization [facility] Address [address] [place] [address] Care Team Providers Care Dye Reel Operator Helper Name Role Phone Jonathan Woods MD Primary Care Provider Encounter Details Date Type Department Care Team (Late st Contact Info) Description 02/25/2023 Orders Only [facility] Primary Care at [address] [place] [address] Jonathan Woods MD [address] [place] [address] [address] [place], [place] [id number] Special screening for malignant neoplasms, colon (Primary Dx); Screening for malignant neoplasm of the rectum Social History Tobacco Use Types Packs/Day Years [...] on file 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 COLOGUARD Routine 03/05/2023 7:30 AM CDT Special screening for malignant neoplasms, colon Screening for malignant neoplasm of the rectum documented in this encounter Results * (ABNORMAL) Stool DNA - Cologuard (03/05/2023 7:30 AM CDT) Stool DNA - Cologuard Positive( A) Negative [employer] (CLIA #:[id number]) Comment: POSITIVE TEST RESULT. A positive Cologuard result should be followed with a colonoscopy or visual examination of the colon. The normal value (reference range) for this assay is negative. TEST DESCRIPTION: Composite algorithmic analysis of stool DNA-biomarkers with hemoglobin immunoassay. ?? Quantitative values of individual biomarkers are not reportable and are not associated with individual biomarker result reference ranges. Cologuard is intended for colorectal cancer screening of adults of either sex, 45 years or older, who are at average-risk for colorectal cancer (CRC). Cologuard has been approved for use by the U.S. FDA. The performance of Cologuard was established in a cross sectional study of average-risk adults aged 50-84. Cologuard performance in patients ages 45 to 49 years was estimated by sub-group analysis of near-age groups. Colonoscopies performed for a positive result may find as the most clinically significant lesion: colorectal cancer [4.0%], advanced adenoma (including sessile serrated polyps greater than or equal to 1cm diameter) [20%] or non- advanced adenoma [31%]; or no colorectal neoplasia [45%]. These estimates are derived from a prospective cross-sectional screening study of 10,000 individuals at average risk for colorectal cancer who were screened with both Cologuard and colonoscopy. (Titi Krishnan al, N Engl J Med 2014;370(14):5687-4766.) Cologuard may produce a false negative or false positive result (no colorectal cancer or precancerous polyp present at colonoscopy follow up). A negative Cologuard test result does not guarantee the absence of CRC or advanced adenoma (pre-cancer). The current Cologuard screening interval is every 3 years. ([place] Cancer Society and U.S. Multi-Society Task Force). Cologuard performance data in a 10,000 patient pivotal study using colonoscopy as the reference method can be accessed at the following location: [email or web address]/results. Additional description of the Cologuard test process, warnings and precautions can be found at www.[email or web address] Plasma [email or web address]. Stool 03/05/2023 7:30 AM CDT 03/06/2023 5:39 PM CDT us Jonathan Woods MD LAB BODY FLUIDS AND STO OLS ORDERABLES Final Result [employer] (CLIA #:[id number]) [place] [address] [place] [address] documented in this encounter Visit Diagnoses Diagnosis Special screening for malignant neoplasms, colon- Primary Screening for malignant neoplasm of the rectum documented in this encounter Care Teams Dye Reel Operator Helper Relationship Specialty Start Date End Date Jonathan Woods MD PCP - General 08/27/12 documented as of this encounter
--- OUTSIDE RECORDS SUMMARY | 2024-09-21 11:17 | XMS_ITS | Encounter Summary ---
Author Organization [facility] Address [address] [place] [address] Care Team Providers Care Liver Trimmer Name Role Phone Jonathan Woods MD Primary Care Provider Encounter Details Date Type Department Care Team (Late st Contact Info) Description 03/22/2023 Telephone [facility] Gastroenterology at [address] [place] [phone] Hernan Piña MD [address] [place] [address] [address] [place] [address] Social History Tobacco Use Types Packs/Day Years [...] on file 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 Ibrahim scheduled for colonoscopy 7-20-2023 @ 9:30 am Last colonoscopy: first Family history colon cancer (if yes, relationship to pt): no Personal history colon polyps or colon cancer: no Pt on blood thinner (if yes, list medication and reason for taking): no Has pt had recent stent placement within the last year: no Pt have pacemaker/defibrillator: no Pt diabetic (if yes, insulin or oral meds): no Pt have kidney disease or on dialysis: no Pt on iron: no Hx of Constipation: no Mechanical Heart valve: no COVID-19 test verbally given to pt:no Instructed pt to call with any medical changes and/or medications/insurance. documented in this encounter Plan of Treatment Not on file documented as of this encounter Visit Diagnoses Diagnosis Positive colorectal cancer screening using Cologuard test- Primary Encounter for screening colonoscopy documented in this encounter Orders Case Request Count Last Ordered Date First Orde red Date CASE REQUEST GI 1 03/22/2023 documented in this encounter Care Teams Liver Trimmer Relationship Specialty Start Date End Date Jonathan Woods MD PCP - General 08/27/12 documented as of this encounter
--- OUTSIDE RECORDS SUMMARY | 2024-09-21 11:17 | XMS_ITS | Encounter Summary ---
Author Organization [facility] Address [address] [place] [address] Care Team Providers Care Hand Flesher Name Role Phone Jonathan Woods MD Primary Care Provider Encounter Details Date Type Department Care Team (Late st Contact Info) Description 04/02/2019 Telephone [facility] [address] [facility] [address] [facility] [address] [place] [address] Jonathan Woods MD [address] [place] [address] [address] [place] [address] Social History Tobacco Use Types Packs/Day Years Used Date Smoking Tobacco: Never Alcohol Use Standard Drinks/Week Comments Yes 0 (1 standard drink = 0.6 oz pur e alcohol) Comments Unknown Sex and Gender Information Value Date Recorded Sex Assigned at Not on file 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 She originally had an 11:30am apt, but mauro wants his morning packed as full as we can so he can leave earlier in the afternoon. Pt agreed to come in at 9am. MAURO aware he is double booked at 9. documented in this encounter Plan of Treatment Not on file documented as of this encounter Visit Diagnoses Not on filedocumented in this encounter Care Teams Hand Flesher Relationship Specialty Start Date End Date Jonathan Woods MD PCP - General 08/27/12 documented as of this encounter
--- OUTSIDE RECORDS SUMMARY | 2024-09-21 11:17 | XMS_ITS | Encounter Summary ---
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 Gender Identity Not on file Sexual Orientation Not on file documented as of this encounter Discharge Disposition Disposition Code Departure Means Destination Discharge to home or self care documented in this encounter Plan of Treatment Not on file documented as of this encounter Procedures Procedure Name Priority Date/Time Associated Diagnosis Comments EGFR Routine 03/17/2021 6:43 AM CDT Preventative health care LIPID PANEL Routine 03/17/2021 6:43 AM CDT Preventative health care COMPREHENSIVE METABOLIC PANEL Routine 03/17/2021 6:43 AM CDT Preventative health care documented in this encounter Results * eGFR (03/17/2021 6:43 AM CDT) [facility] Signature eGFR 104 mL/min/1.7 3 m2 JALEESA HUDSON ([place]) Comment: Interpretive Data Reference Interval Normal ?>/= 90 mL/min/1.73m2 Mildly decreased* ? 60 - 89 mL/min/1.73m2 Mildly to moderately decreased ?45 - 59 mL/min/1.73m2 Moderately to severely decreased ??30 - 44 mL/min/1.73m2 Severely decreased ?15 - 29 mL/min/1.73m2 Kidney Failure ?< 15 ??mL/min/1.73m2 *Relative to young adult level Estimated glomerular filtration rate is determined by the CKD-EPI equation recommended by the National Kidney Foundation (KDIGO 2012 Clinical Practice Guideline for the Evaluation and Management of Chronic Kidney Disease. Kidney Intnl Suppl Sep 2012;3:1). The CKD-EPI equation should not be used for patients with unstable renal function and has not been validated in children and those over 70. Current interpretive data was last reviewed 2020 Blood specimen (specimen) 03/17/2021 6:43 AM CDT 03/17/2021 7:24 AM CDT us Jonathan Woods MD LAB BLOOD ORDERABLES Fi nal Result [facility]ALE[facility]A HUDSON ([place]) [address] [facility] Department [place] [address] * Comprehensive metabolic panel (03/17/2021 6:43 AM [...] LAB BLOOD ORDERABLES Fi nal Result JALEESA HUDSON ([place]) [address] [facility] Department [place] [address] * Lipid panel (03/17/2021 6:43 AM CDT) Cholesterol 166 30 - 199 mg/dL [facility]ALE[facility]A HUDSON ([place]) Comment: Interpretive Data Ages < or = [...] revised on 2018. HDL 84 >=40 mg/dL JALEESA Garcia ([place]) Comment: Interpretive Data Ages < or [...] last revised on 2018. Chol/HDL ratio 2 [facility] ([place]) Blood specimen (specimen) 03/17/2021 6:43 AM CDT 03/17/2021 7:24 AM CDT Narrative [facility]ALEESA HUDSON ([place]) - 03/17/2021 8:38 AM CDT fasting us Jonathan Woods MD LAB BLOOD ORDERABLES Fi nal Result JALEESA BECCA ([place]) [address] [facility] Department [place] [address] documented in this encounter Visit Diagnoses Diagnosis Preventative health care Routine general medical examination at a health care facility documented in this encounter Care Teams Tank Shop Supervisor Relationship Specialty Start Date End Date Jonathan Woods MD PCP - General 08/27/12 documented as of this encounter
--- OUTSIDE RECORDS SUMMARY | 2024-09-21 11:17 | XMS_ITS | Encounter Summary ---
Author Organization [facility] Address [address] [place] [address] Care Team Providers Care Claims Specialist Name Role Phone Jonathan Woods MD Primary Care Provider Encounter Details Date Type Department Care Team (Late st Contact Info) Description 02/29/2020 Orders Only [facility] [address] 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 Gender Identity Not on file Sexual Orientation Not on file documented as of this encounter Plan of Treatment Not on file documented as of this encounter Procedures Procedure Name Priority Date/Time Associated Diagnosis Comments SCAN - RADIOLOGY/IMAGING Routine 02/29/2020 documented in this encounter Results * SCAN - RADIOLOGY/IMAGING (02/29/2020) Anatomical Region Laterality Modality Other Historical Provider Final Res ult documented in this encounter Visit Diagnoses Not on filedocumented in this encounter Care Teams Claims Specialist Relationship Specialty Start Date End Date Jonathan Woods MD PCP - General 08/27/12 documented as of this encounter
--- OUTSIDE RECORDS SUMMARY | 2024-09-21 11:17 | XMS_ITS | Encounter Summary ---
Author Organization [facility] Address [address] [place] [address]. [place], [place] [id number] [place] [address] Care Team Providers Care Assistant Men'S Lacrosse Coach Name Role Phone Unavailable Primary Care Provider Unavailabl e Encounter Details Date Type Department Care Team (Latest Contact Info) Description 09/27/2020 Travel Social History Tobacco Use Types Packs/Day Years Used Date Smoking Tobacco: Never Assessed Comments Unknown Sex and Gender Information Value Date Recorded Sex Assigned at Not on file Legal Sex Female 6:13 PM ENTERTAINMENT & MEDIA CORRESPONDENT Gender Identity Not on file Sexual Orientation Not on file COVID-19 Exposure Response Date Recorded In the last month, have you been in contact with someone who was confirmed or suspected to have Coronavirus / COVID-19? No / Unsure 09/27/2020 6:14 PM ENTERTAINMENT & MEDIA CORRESPONDENT documented as of this encounter Plan of Treatment Not on file documented as of this encounter Visit Diagnoses Not on filedocumented in this encounter
--- OUTSIDE RECORDS SUMMARY | 2024-09-21 11:17 | XMS_ITS | Encounter Summary ---
Author Organization [facility] Address [address] [place] [address]. [place], [place] [address] [place] [address] Care Team Providers Care Director Federal Name Role Phone Unavailable Primary Care Provider Unavailabl e Encounter Details Date Type Department Care Team (Latest Contact Info) Description 10/25/2020 Travel Social History Tobacco Use Types Packs/Day Years Used Date Smoking Tobacco: Never Assessed Comments Unknown Sex and Gender Information Value Date Recorded Sex Assigned at Not on file Legal Sex Female 6:13 PM PISTON MAKER Gender Identity Not on file Sexual Orientation Not on file COVID-19 Exposure Response Date Recorded In the last month, have you been in contact with someone who was confirmed or suspected to have Coronavirus / COVID-19? No / Unsure 10/25/2020 1:46 PM PISTON MAKER documented as of this encounter Plan of Treatment Not on file documented as of this encounter Visit Diagnoses Not on filedocumented in this encounter
--- OUTSIDE RECORDS SUMMARY | 2024-09-21 11:17 | XMS_ITS | Encounter Summary ---
Author Organization [facility] Address [address] [place] [address] Care Team Providers Care Packager Name Role Phone Jonathan Woods MD Primary Care Provider Reason for Visit * Reason Comments Preventative Care Encounter Details Date Type Department Care Team (Late st Contact Info) Description 03/28/2021 3:30 PM CDT Office Visit [facility] [address] [place] [address] Jonathan Woods MD [address] [place] [address] [address] [place] [address] Annual physical exam (Primary Dx); BMI 27.0-27.9,adult Social History Tobacco Use Types Packs/Day Years [...] on file 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 Gender Identity Not on file Sexual Orientation Not on file documented as of this encounter Last Filed Vital Signs Vital Sign Reading Time Taken Comments Blood Pressure 100/62 03/28/2021 3:53 PM CDT Pulse 72 03/28/2021 3:53 PM CDT Temperature - - Respiratory Rate 18 03/28/2021 3:53 PM CDT Oxygen Saturation 98% 03/28/2021 3:53 PM CDT Inhaled Oxygen Concentration - - Weight 71.6 kg (157 lb 12.8 oz) 03/28/2021 3:53 PM CDT Height 162.6 cm (5' 4 ) 03/28/2021 3:53 PM CDT Body Mass Index 27.09 03/28/2021 3:53 PM CDT documented in this encounter Ordered Prescriptions Prescription Sig Dispense Quantity Refills Last Filled Start Date End Date albuterol HFA (PROVENTIL HFA,VENTOLIN HFA,PROAIR HFA) 90 mcg/actuation inhaler Inhale 2 puffs 4 (four) times a day 1 Inhaler 11 03/28/2021 02/25/2023 documented in this encounter Progress Notes * Jonathan Woods MD - 03/28/2021 3:30 PM CDT [facility] DATE: 1975 Vitals: 03/28/21 1553 BP: 100/62 BP Location: Left arm Patient Position: Sitting Pulse: 72 Resp: 18 SpO2: 98% Weight: 71.6 kg (157 lb 12.8 oz) Height: 162.6 cm (5' 4 ) Body mass index is 27.09 kg/m??. Chief Complaint Chief Complaint Patient presents with ??? Preventative Care HPI Luna Mcfadden is a 45 y.o. 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 Marital status: Spouse name: Not on file ??? Number of children: Not on file ??? Years of education: Not on file ??? Highest education level: Not on file Occupational History ??? Not on file Tobacco Use ??? Smoking status: Never Smoker Substance and Sexual Activity ??? Alcohol use: Yes ??? Drug use: Not on file ??? Sexual activity: Not on file Other Topics Concern ??? Not on file Social History Narrative ??? Not on file Social Determinants of Health Financial Resource Strain: ??? Difficulty of Paying Living Expenses: Food Insecurity: ??? Worried About Running Out of Food in the Last Year: ??? Ran Out of Food in the Last Year: Transportation Needs: ??? Lack of Transportation (Medical): ??? Lack of Transportation (Non-Medical): Physical Activity: ??? Days of Exercise per Week: ??? Minutes of Exercise per Session: Stress: ??? Feeling of Stress : Social Connections: ??? Frequency of Communication with Friends and Family: ??? Frequency of Social Gatherings with Friends and Family: ??? Attends Restorationist Services: ??? Active Member of Clubs or Organizations: ??? Attends Club or Organization Meetings: ??? Marital Status: Intimate Partner Violence: ??? Fear of Current or Ex-Partner: ??? Emotionally Abused: ??? Physically Abused: ??? Sexually Abused: Active Ambulatory Problems Diagnosis Date Noted ??? Atopic rhinitis 02/06/2014 Resolved Ambulatory Problems Diagnosis Date Noted ??? No Resolved Ambulatory Problems Past Medical History: Diagnosis Date ??? HX OTHER MEDICAL Family History Problem Relation Age of Onset ??? Diabetes type II Father 63 Diabetes -Type 2; ??? Prostate cancer Father Cancer, prostate; No Known Allergies REVIEW OF SYSTEMS Review of Systems Constitutional: Negative for chills, diaphoresis, fatigue, fever and unexpected weight change. HENT: Negative for congestion, hearing loss, postnasal drip, sneezing, sore throat, tinnitus and trouble swallowing. Eyes: Negative for visual disturbance. Respiratory: Positive for chest tightness and wheezing. Negative for cough and shortness of breath. Really no big problems she just takes a little albuterol before she goes off for long run Cardiovascular: Negative for chest pain, palpitations and leg swelling. Gastrointestinal: Negative for abdominal pain, anal bleeding, blood in stool, constipation, diarrhea, nausea and vomiting. Endocrine: Negative for polydipsia, polyphagia and polyuria. Genitourinary: Negative for dysuria, frequency, hematuria and urgency. Nocturia negative still having regular menstrual periods she has an abnormal mammogram they are checking out Musculoskeletal: Negative for arthralgias, back pain, joint swelling and myalgias. Skin: Negative for rash. Allergic/Immunologic: Negative for environmental allergies and food allergies. Neurological: Negative for dizziness, tremors, syncope and headaches. Hematological: Negative for adenopathy. Does not bruise/bleed easily. Psychiatric/Behavioral: Negative for dysphoric mood and sleep disturbance. PHYSICAL EXAM Physical Exam Vitals and nursing note reviewed. Constitutional: Appearance: She is well-developed. Comments: Weight is up 3 lb blood pressure is fine HENT: Head: Normocephalic and atraumatic. Right Ear: External ear normal. Left Ear: External ear normal. Nose: Nose normal. Eyes: Conjunctiva/sclera: Conjunctivae normal. Pupils: Pupils are equal, round, and reactive to light. Neck: Comments: No lymphadenopathy thyroid gland was normal Cardiovascular: Rate and Rhythm: Normal rate and regular rhythm. Heart sounds: Normal heart sounds. Pulmonary: Breath sounds: Normal breath sounds. Comments: No wheezes or pulmonary abnormalities today Abdominal: General: Bowel sounds are normal. Palpations: Abdomen is soft. 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 Cervical back: Normal range of motion and neck supple. Skin: General: Skin is warm and dry. Comments: No suspicious skin lesions Neurological: Mental Status: She is alert and oriented to person, place, and time. Deep Tendon Reflexes: Reflexes are normal and symmetric. LAST LABS Lab Results Component Value Date CHOL 166 03/17/2021 TRIG 53 03/17/2021 HDL 84 03/17/2021 ALT 16 03/17/2021 AST 24 03/17/2021 SODIUM 137 03/17/2021 POTASSIUM 4.3 03/17/2021 CHLORIDE 103 03/17/2021 CREATININE 0.68 03/17/2021 BUNSER 20 03/17/2021 CO2 23 03/17/2021 ASSESSMENT AND PLAN Assessment/Plan Diagnoses and all orders for this visit: Annual physical exam (Primary) - Lipid panel; Future - Comprehensive metabolic panel; Future I reviewed all of her lab with her she has lots of HDL sugars fine and really no other abnormalities she is up-to-date with her preventive services gets a flu shot a fall she has had her COVID vaccination as well and she is now both enough to get a colon cancer screening she is going to check with her insurance plan to make sure they cover a stool DNA test which is what she would prefer we agreed that she could go 2 years between visits since she sees her resident services supervisor doctor as well BMI 27.0-27.9,adult Her BMI is still good although she gained a few lb back she can run without any restriction Other orders - albuterol HFA (PROVENTIL HFA,VENTOLIN HFA,PROAIR HFA) 90 mcg/actuation inhaler; Inhale 2 puffs 4 (four) times a day She has learned that if she pre treats with albuterol she does a lot better with her breathing during her runs but does not have a lot of asthma or overt wheezes No future appointments. All past family, medical, and social history were reviewed and updated in the EMR as well as current medications. Patient offered no further complaints and was in agreement with plan of care. Patientwas advised regarding dosage, use, and side effects of any new medications. Patient was advised to f/u in office with any worsening or little to no improvement of symptoms. Patient was advised to follow-up regarding the results of testing ordered in office today and that they should hear from us regarding the results in 2-3 business days, discussed benefits of MyChart in regard to patient experience. The patient was given the opportunity to have all questions answered today and was in agreementwith the plan of care. This note is dictated and transcribed by with assistance from [employer] Direct Software. Scutcher Tender variances may occur. Despite proofreading, typographical errors may occur. documented in this encounter Plan of Treatment Not on file documented as of this encounter Visit Diagnoses Diagnosis Annual physical exam- Primary Routine general medical examination at a health care facility BMI 27.0-27.9,adult documented in this encounter Discontinued Medications Medication Sig Discontinue Reason Start Date End Da te albuterol HFA (PROVENTIL HFA,VENTOLIN HFA,PROAIR HFA) 90 mcg/actuation inhaler Inhale 2 puffs 4 (four) times a day Reorder 02/04/2019 03/28/2021 documented as of this encounter Care Teams Packager Relationship Specialty Start Date End Date Jonathan Woods MD PCP - General 08/27/12 documented as of this encounter
--- OUTSIDE RECORDS SUMMARY | 2024-09-21 11:17 | XMS_ITS | Encounter Summary ---
Author Organization [facility] Address [address] [place] [address]. [place] [address] [place] [address] Care Team Providers Care Webfocus Developer Name Role Phone Unavailable Primary Care Provider Unavailabl e Encounter Details Date Type Department Care Team (Latest Contact Info) Description 10/25/2020 1:47 PM MANUSCRIPTS CURATOR - 10/25/2020 11:59 PM MANUSCRIPTS CURATOR Hospital Encounter [facility] [address] [place] [address] Darell Kwong MD Discharge Disposition: Home or Self Care (Routine Discharge) Social History Tobacco Use Types Packs/Day Years Used Date Smoking Tobacco: Never Assessed Comments Unknown Sex and Gender Information Value Date Recorded Sex Assigned at Not on file Legal Sex Female 6:13 PM MANUSCRIPTS CURATOR Gender Identity Not on file Sexual Orientation Not on file COVID-19 Exposure Response Date Recorded In the last month, have you been in contact with someone who was confirmed or suspected to have Coronavirus / COVID-19? No / Unsure 10/25/2020 1:46 PM MANUSCRIPTS CURATOR documented as of this encounter Plan of Treatment Not on file documented as of this encounter Visit Diagnoses Diagnosis Need for prophylactic vaccination against viral disease- Primary Need for prophylactic vaccination and inoculation against other viral diseases documented in this encounter
--- OUTSIDE RECORDS SUMMARY | 2024-09-21 11:17 | XMS_ITS | Encounter Summary ---
Author Organization [facility] Address [address] [place] [address] Care Team Providers Care Urban Planning Teacher Name Role Phone Jonathan Woods MD Primary Care Provider Encounter Details Date Type Department Care Team (Late st Contact Info) Description 02/25/2023 3:30 PM CDT Office Visit [facility] Primary Care at [address] [place] [address] Jonathan Woods MD [address] [place] [address] [address] [place], [place] [id number] Annual physical exam (Primary Dx); BMI 25.0-25.9,adult; Vitamin D deficiency; Acquired hypothyroidism; Iron deficiency anemia due to chronic blood loss Social History Tobacco Use Types Packs/Day Years [...] on file 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 Gender Identity Not on file Sexual Orientation Not on file documented as of this encounter Last Filed Vital Signs Vital Sign Reading Time Taken Comments Blood Pressure 118/72 02/25/2023 3:44 PM CDT Pulse 82 02/25/2023 3:44 PM CDT Temperature - - Respiratory Rate - - Oxygen Saturation 98% 02/25/2023 3:44 PM CDT Inhaled Oxygen Concentration - - Weight 67.1 kg (148 lb) 02/25/2023 3:44 PM CDT Height 162.6 cm (5' 4 ) 02/25/2023 3:44 PM CDT Body Mass Index 25.4 02/25/2023 3:44 PM CDT documented in this encounter Ordered Prescriptions Prescription Sig Dispense Quantity Refills Last Filled Start Date End Date albuterol HFA (PROVENTIL HFA,VENTOLIN HFA,PROAIR HFA) 90 mcg/actuation inhaler Inhale 2 puffs 4 (four) times a day 3 each 11 02/25/2023 documented in this encounter Progress Notes * Jonathan Woods MD - 02/25/2023 3:30 PM CDT [facility] DATE: 1975 Vitals: 02/25/23 1544 BP: 118/72 BP Location: Left arm Patient Position: Sitting Pulse: 82 SpO2: 98% Weight: 67.1 kg (148 lb) Height: 162.6 cm (5' 4 ) Body mass index is 25.4 kg/m??. Chief Complaint No chief complaint on file. CHARLOTTE Ibrahim is a 47 y.o. female presents today for her annual preventive exam in follow-upvisit. Since I last saw her she is doing great although she does take albuterol before her exercise. She is planning on running 50 K race for her 48th birthday coming up and that will be admission can on a trail run She wanted me to check on her thyroid and CBC levels as well as vitamin-D level so will be glad to do that as well she eats a careful diet and is not a big drinker stays away from caffeine as well Social History Tobacco Use Smoking status: Never Smokeless tobacco: None Substance and Sexual Activity Drug use: None Sexual activity: None Alcohol Use: Not on file Active Ambulatory Problems Diagnosis Date Noted Atopic rhinitis 02/06/2014 Resolved Ambulatory Problems Diagnosis Date Noted No Resolved Ambulatory Problems Past Medical History: Diagnosis Date HX OTHER MEDICAL Family History Problem Relation Age of Onset Diabetes type II Father 63 Diabetes -Type 2; Prostate cancer Father Cancer, prostate; No Known Allergies REVIEW OF SYSTEMS Review of Systems Constitutional: Negative for chills, diaphoresis, fatigue, fever and unexpected weight change. HENT: Negative for congestion, hearing loss, postnasal drip, sneezing, sore throat, tinnitus and trouble swallowing. Eyes: Negative for visual disturbance. Respiratory: Negative for cough, shortness of breath and wheezing. Cardiovascular: Negative for chest pain, palpitations and leg swelling. Gastrointestinal: Negative for abdominal pain, anal bleeding, blood in stool, constipation, diarrhea, nausea and vomiting. Endocrine: Negative for polydipsia, polyphagia and polyuria. Genitourinary: Negative for dysuria, frequency, hematuria and urgency. Nocturia negative Musculoskeletal: Negative for arthralgias, back pain, joint swelling and myalgias. Skin: Negative for rash. Allergic/Immunologic: Negative for environmental allergies and food allergies. Neurological: Negative for dizziness, tremors, syncope and headaches. Hematological: Negative for adenopathy. Does not bruise/bleed easily. Psychiatric/Behavioral: Negative for dysphoric mood and sleep disturbance. PHYSICAL EXAM Physical Exam Vitals and nursing note reviewed. Constitutional: Appearance: Normal appearance. She is well-developed and normal weight. Comments: Weight is down several lb blood pressures okay HENT: Head: Normocephalic and atraumatic. Right Ear: Tympanic membrane and external ear normal. Left Ear: Tympanic membrane and external ear normal. Nose: Nose normal. Mouth/Throat: Mouth: Mucous membranes are moist. Eyes: Extraocular Movements: Extraocular movements intact. Conjunctiva/sclera: Conjunctivae normal. Pupils: Pupils are equal, round, and reactive to light. Cardiovascular: Rate and Rhythm: Normal rate and regular rhythm. Heart sounds: Normal heart sounds. Pulmonary: Breath sounds: Normal breath sounds. Abdominal: General: Bowel sounds are normal. Palpations: Abdomen is soft. Genitourinary: Comments: Architectural Drafter exam elsewhere her periods are still okay Musculoskeletal: General: Normal range of motion. Cervical back: Normal range of motion and neck supple. Skin: General: Skin is warm and dry. Comments: No suspicious skin lesions Neurological: Mental Status: She is alert and oriented to person, place, and time. Deep Tendon Reflexes: Reflexes are normal and symmetric. Psychiatric: Mood and Affect: Mood normal. LAST LABS Lab Results Component Value Date CHOL 175 02/21/2023 TRIG 48 02/21/2023 HDL 85 02/21/2023 ALT 18 02/21/2023 AST 29 02/21/2023 SODIUM 139 02/21/2023 POTASSIUM 4.2 02/21/2023 CHLORIDE 104 02/21/2023 CREATININE 0.69 02/21/2023 BUNSER 12 02/21/2023 CO2 25 02/21/2023 ASSESSMENT AND PLAN Assessment/Plan Diagnoses and all orders for this visit: Annual physical exam (Primary) - Comprehensive metabolic panel; Future - Lipid panel; Future - TSH; Future - Vitamin D 25 hydroxy; Future - CBC with auto differential; Future She is due for colon cancer screening with a stool DNA test and she will be due for tetanus shot some day when she has an indication no plans for any COVID vaccinations and she is up-to-date with hermammogram and her Pap smear I went over her lab with her everything looks great including her lipids sugar liver and kidney functions etc. BMI 25.0-25.9,adult Excellent weight control she is very active lady no need to change any thing in her lifestyle Vitamin D deficiency - Vitamin D 25 hydroxy; Future Now that she is going to be 48 will check her vitamin-D level make sure we keep an eye on her bonesurged to get a 1000 units of vitamin-D daily Acquired hypothyroidism - TSH; Future She feels like her periods little heavy let us go ahead and check a thyroid level to make sure she is doing okay with that Iron deficiency anemia due to chronic blood loss - CBC with auto differential; Future Her periods can be heavy let us check a CBC although her color looks good Other orders - albuterol HFA (PROVENTIL HFA,VENTOLIN HFA,PROAIR HFA) 90 mcg/actuation inhaler; Inhale 2 puffs 4 (four) times a day No future appointments. All past family, medical, [...] dictated and transcribed by with assistance from [employer] Direct Software. Business Objects Developer variances may occur. Despite proofreading, typographical errors may occur. documented in this encounter Plan of Treatment Scheduled Orders Name Type Priority Associated Diagnoses Orde r Schedule Comprehensive metabolic panel Lab Routine Annual physical exam Expected: 02/22/2025 (Approximate), Expires: 03/17/2029 Lipid panel Lab Routine Annual physical exam Expected: 02/22/2025 (Approximate), Expires: 03/17/2029 TSH Lab Routine Annual physical exam Acquired hypothyroidism Expected: 02/22/2025 (Approximate), Expires: 03/17/2029 Vitamin D 25 hydroxy Lab Routine Annual physical exam Vitamin D deficiency Expected: 02/22/2025 (Approximate), Expires: 03/17/2029 CBC with auto differential Lab Routine Annual physical exam Iron deficiency anemia due to chronic blood loss Expected: 02/22/2025 (Approximate), Expires: 03/17/2029 documented as of this encounter Visit Diagnoses Diagnosis Annual physical exam- Primary Routine general medical examination at a health care facility BMI 25.0-25.9,adult Vitamin D deficiency Acquired hypothyroidism Unspecified hypothyroidism Iron deficiency anemia due to chronic blood loss Iron deficiency anemia secondary to blood loss (chronic) documented in this encounter Discontinued Medications Medication Sig Discontinue Reason Start Date End Da te albuterol HFA (PROVENTIL HFA,VENTOLIN HFA,PROAIR HFA) 90 mcg/actuation inhaler Inhale 2 puffs 4 (four) times a day 03/28/2021 02/25/2023 documented as of this encounter Care Teams Urban Planning Teacher Relationship Specialty Start Date End Date Jonathan Woods MD PCP - General 08/27/12 documented as of this encounter
--- OUTSIDE RECORDS SUMMARY | 2024-09-21 11:17 | XMS_ITS | Encounter Summary ---
Author Organization [facility] Address [address] [place] [address]. [place] [address] [place] [address] Care Team Providers Care Hand Packer Name Role Phone Unavailable Primary Care Provider Unavailabl e Encounter Details Date Type Department Care Team (Latest Contact Info) Description 09/27/2020 6:17 PM HAND SURGEON - 09/27/2020 11:59 PM HAND SURGEON Hospital Encounter [facility] [address] [place] [address] Darell Kwong MD Discharge Disposition: Home or Self Care (Routine Discharge) Social History Tobacco Use Types Packs/Day Years Used Date Smoking Tobacco: Never Assessed Comments Unknown Sex and Gender Information Value Date Recorded Sex Assigned at Not on file Legal Sex Female 6:13 PM HAND SURGEON Gender Identity Not on file Sexual Orientation Not on file COVID-19 Exposure Response Date Recorded In the last month, have you been in contact with someone who was confirmed or suspected to have Coronavirus / COVID-19? No / Unsure 09/27/2020 6:14 PM HAND SURGEON documented as of this encounter Plan of Treatment Not on file documented as of this encounter Visit Diagnoses Diagnosis Need for prophylactic vaccination against viral disease- Primary Need for prophylactic vaccination and inoculation against other viral diseases documented in this encounter
--- OUTSIDE RECORDS SUMMARY | 2024-09-21 11:17 | XMS_ITS | Clinical Summary ---
Author Organization [facility] A Address [address] [place] [address] Care Team Providers Care Solar Energy Advisor Name Role Phone Jonathan Woods MD Primary Care Provider Allergies No known active allergies Medications albuterol HFA (PROVENTIL HFA,VENTOLIN HFA,PROAIR HFA) 90 mcg/actuation inhaler Inhale 2 puffs 4 (four) times a day 3 each 11 02/25/2023 Active Active Problems Problem Noted Date [...] YRS) 07/05/2023,07/18/2022 Tdap 11/28/2009 ZOSTER Recombinant 07/05/2023 Surgical History Surgery Date Site/Laterality Comments COLONOSCOPY 04/11/2023 Medical History Medical History Date Comments 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; 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: 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/15/2015 - Family History Medical History Relation Name Comments Diabetes type II Father Diabetes -T ype 2; Prostate cancer Father Cancer, pros cannon; Relation Name Status Comments Father Social History Tobacco Use Types Packs/Day Years [...] on file 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 Gender Identity Not on file Sexual Orientation Not on file Obstetrics History Last Filed Vital Signs Vital Sign Reading [...] 02/25/2023 3:44 PM CDT Plan of Treatment Health Maintenance Due Date Last Done Comments Hepatitis C Screening 1975 Hepatitis B Screening 1991 DTaP/Tdap/Td Vaccine (2 - Td or Tdap) 11/29/2019 11/28/2009 Cervical Cancer Screening 02/26/2020 02/25/2019 Breast Cancer Screening-Mammogram 08/28/2023 08/28/2022, 02/29/2020, 02/26/2019, Additional history exists Zoster Vaccine (2 of 2) 08/30/2023 07/05/2023 Depression Screening 02/26/2024 02/25/2023, 03/28/2021, 04/03/2019, Additional history exists Regular Well Visit/Exam 18-64 02/26/2024 02/25/2023, 03/28/2021, 04/03/2019, Additional history exists Covid-19 Vaccine ( season) 2024 07/05/2023, 07/05/2023, 07/18/2022, Additional history exists Influenza Vaccine (#1) 2024 , 07/18/2022, 07/18/2022, Additional history exists Colon Cancer Screening-Colonoscopy 04/11/2033 04/11/2023 Pneumococcal vaccine <65 Aged Out No longer eligible based on patient's age to complete this topic Procedures Procedure Name Priority Date/Time Associated Diagnosis Comments COLONOSCOPY 04/11/2023 9:22 AM CDT SCREENING MAMMOGRAM Schedule Routine, Read Routine (OP Routine) 08/28/2022 HM PAP SMEAR WITH HPV Routine 02/25/2019 from Last 3 Months or Most Recently Relevant to Health Maintenance Results * COLONOSCOPY (04/11/2023 9:22 AM CDT) Anatomical Region Laterality Modality Other Narrative Procedure Note Hernan Piña MD - 04/11/2023 9:22 AM CDT [facility] Patient Name: Vida Mcfadden Procedure Date: 04/11/2023 9:22 AM Date of : 1975 Admit Type: Outpatient Age: 47 Gender: Female Attending MD: Hernan Piña M.D. Room: COUNTS INCLUDE 234 BEDS AT THE [facility] ENDOSCOPY ROOM 2 Note Status: Finalized [...] by the physician, the anesthesiologist and the porcelain technician in the endoscopy suite. MentalStatus Examination: [...] passed under direct vision.The Pediatric Colonoscope [id number]-[id number] was introduced through the anus and advanced [...] 9:22 AM Procedure Code(s): --- Professional --- 45680, Colonoscopy, flexible; with removal of tumor(s), polyp(s), or other lesion(s) by snare technique --- Technical --- 77229, Colonoscopy, flexible; with removal of tumor(s), polyp(s), or other lesion(s) by snare technique Diagnosis Code(s): --- Professional --- K64.8, Other hemorrhoids D12.4, Benign neoplasm of descending colon R19.5, Other fecal abnormalities --- Technical --- K64.8, Other hemorrhoids D12.4, Benign neoplasm of descending colon R19.5, Other fecal abnormalities CPT copyright 2020 [employer]. All rights reserved. The codes documented in this report are preliminary and upon systems integration engineer reviewmay be revised to meet current compliance requirements. Recognized by the [employer] for promoting quality in endoscopy us Hernan Piña MD ENDOSCOPY PROCEDURES Final Resul t * Screening Mammogram (08/28/2022) Anatomical Region Laterality Modality Breast N/A Mammography Jonathan Woods MD IMG MAMMO PROCEDURES Fi nal Result * HM PAP SMEAR WITH HPV (02/25/2019) HM Pap smear Normal Historical Provider HEALTH MAINTENANCE Final Result from Last 3 Months or Most Recently Relevant to Health Maintenance [place] [address] [facility] Address: [address] [address] [place] [address] [place] [address] [facility] Address: [address] [address] [place] [phone] Advance Directives For more information, please contact: [phone] * Full Code (Latest Code Status on File) Date Activated Date Inactivated Comments 04/11/2023 8:58 AM 04/11/2023 3:05 PM * Full Code Date Activated Date Inactivated Comments 04/11/2023 8:58 AM 04/11/2023 8:58 AM Care Teams Solar Energy Advisor Relationship Specialty Start Date End Date Jonathan Woods MD PCP - General 08/27/12
--- OUTSIDE RECORDS SUMMARY | 2024-09-21 11:17 | XMS_ITS | Encounter Summary ---
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 73 m2 JALEESA HUDSON ([place]) Comment: Interpretive Data Reference Interval Normal ?>/= 90 mL/min/1.73m2 Mildly decreased* ? 60 - 89 mL/min/1.73m2 Mildly to moderately decreased ?45 - 59 mL/min/1.73m2 Moderately to severely decreased ??30 - 44 mL/min/1.73m2 Severely decreased ?15 - 29 mL/min/1.73m2 Kidney Failure ?< 15 ??mL/min/1.73m2 *Relative to young adult level Estimated glomerular filtration rate is determined by the 2020 CKD-EPI equation recommended by the National Kidney Foundation (A Unifying Approach to GFR Estimation: Recommendations of the NKF-ASK Task Force on Reassessing the Inclusion of Race in Diagnosing Kidney Disease, JASN 2020). The CKD-EPI equation should not be used for patients with unstable renal function and has not been validated in children and those over 70. Current interpretive data was last reviewed 2021. Blood 02/21/2023 6:18 AM CDT 02/21/2023 8:35 AM CDT us Jonathan Woods MD LAB BLOOD ORDERABLES Fi nal Result JALEESA HUDSON ([place]) 1 [facility] Department [place] [address] * Lipid panel (02/21/2023 6:18 AM CDT) Cholesterol 175 30 - 199 mg/dL JALEESA HUDSON ([place]) Comment: Interpretive Data Ages < or = [...] Data was last revised on 2018. Triglycerides 48 <=149 mg/dL JALEESA ARCHIBALD) Comment: Interpretive Data Ages < or = [...] Data was last revised on 2018. HDL 85 >=40 mg/dL JALEESA ARCHIBALD) Comment: Interpretive Data Ages < or = [...] was last revised on 2018. LDL, calculated 80 <=129 mg/dL [facility]A HUDSON ([place]) Comment: Interpretive [...] was last revised on 2018. Non-HDL Cholesterol 90 mg/dL JALEES[facility] HUDSON ([place]) Comment: Interpretive Data [...] on 2018. Chol/HDL ratio 2 ANA MARIA HUDSON ([place]) Blood 02/21/2023 6:18 AM CDT 02/21/2023 8:35 AM CDT Narrative [facility] ([place]) - 02/21/2023 9:02 AM CDT fasting us Jonathan Woods MD LAB BLOOD ORDERABLES Fi nal Result [facility] ([place]) 1 [facility] Department [place] [address] * (ABNORMAL) Comprehensive metabolic panel (02/21/2023 6:18 AM CDT) Sodium 139 135 - 145 mmol/L [facility] ([place]) Potassium, pl 4.2 3.3 - 4.9 mmol/L [facility] ([place]) Chloride 104 97 - 110 mmol/L [facility] ([place]) CO2 25 22 - 32 mmol/L [facility] ([place]) Anion gap 10 2 - 15 mmol/L [facility] ([place]) BUN 12 8 - 25 mg/dL [facility] ([place]) Creatinine 0.69 0.60 - 1.10 mg/dL [facility] ([place]) Glucose 81 70 - 199 mg/dL [facility] ([place]) [...] classification and Diagnosis of Diabetes Diabetes Care 2021; 46: S19-S40. Current interpretive data was last revised 2022. Calcium 8.9 8.5 - 10.3 mg/dL [facility] ([place]) Bilirubin, total 0.6 0.1 - 1.2 mg/dL [facility] ([place]) Protein, pl 6.1(L) 6.5 - 8.5 g/dL [facility] ([place]) Albumin 4.1 3.5 - 5.0 g/dL [facility] ([place]) Alk phos 42 40 - 130 Units/L [facility] ([place]) ALT 18 7 - 45 Units/L [facility] ([place]) AST 29 10 - 45 Units/L [facility] ([place]) Blood 02/21/2023 6:18 AM CDT 02/21/2023 8:35 AM CDT Narrative [facility] ([place]) - 02/21/2023 9:02 AM CDT fasting us Jonathan Woods MD LAB BLOOD ORDERABLES Fi nal Result [facility] ([place]) 1 [facility] Department [place] [address] documented in this encounter Visit Diagnoses Diagnosis Preventative health care Routine general medical examination at a health care facility documented in this encounter Care Teams Aboriginal Education Worker Coordinator Relationship Specialty Start Date End Date Jonathan Woods MD PCP - General 08/27/12 documented as of this encounter
--- OUTSIDE RECORDS SUMMARY | 2024-09-21 11:17 | XMS_ITS | Encounter Summary ---
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 Triglycerides 48 <=149 mg/dL [facility] HUDSON ([place]) Comment: Interpretive [...] on 2018. HDL 85 >=40 mg/dL JALEESA Garcia ([place]) Comment: Interpretive [...] ratio 2 [facility] ([place]) Blood 02/21/2023 6:18 AM CDT 02/21/2023 8:35 AM CDT Narrative [facility] ([place]) - 02/21/2023 9:02 AM CDT fasting us Jonathan Woods MD LAB BLOOD ORDERABLES Fi nal Result [facility] ([place]) 1 [facility] Department [place] [address] * (ABNORMAL) Comprehensive metabolic panel (02/21/2023 6:18 AM CDT) Sodium 139 135 - 145 mmol/L [facility] ([place]) Potassium, pl 4.2 3.3 - 4.9 mmol/L [facility] ([place]) Chloride 104 97 - 110 mmol/L [facility] ([place]) CO2 25 22 - 32 mmol/L CERNER [...] classification and Diagnosis of Diabetes Diabetes Care 202; 46: S19-S40. Current interpretive data was last [...] Fi nal Result [facility] ([place]) 1 [facility] Department [place] [address] documented in this encounter Visit Diagnoses Diagnosis Preventative health care- Primary Routine general medical examination at a health care facility Preventative health care Routine general medical examination at a health care facility documented in this encounter Care Teams Aerial Gunner Relationship Specialty Start Date End Date Jonathan Woods MD PCP - General 08/27/12 documented as of this encounter
--- OUTSIDE RECORDS SUMMARY | 2024-09-21 11:17 | XMS_ITS | Encounter Summary ---
Author Organization [facility] Address [address] [place] [address] Care Team Providers Care Digital Media Designer Name Role Phone Jonathan Woods MD Primary Care Provider Encounter Details Date Type Department Care Team (Late st Contact Info) Description 06/04/2023 Orders Only [facility] Primary Care at [address] [place] [address] Jonathan Woods MD [address] [place] [address] [address] [place], [place] [id number] Screening mammogram for breast cancer (Primary Dx) Social History Tobacco Use Types [...] on file 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
--- OUTSIDE RECORDS SUMMARY | 2024-09-21 11:17 | XMS_ITS | Encounter Summary ---
Author Organization [facility] Address [address] [place] [address] Care Team Providers Care Live Out Nanny Name Role Phone Jonathan Woods MD Primary Care Provider Reason for Visit * Auth/Cert (Routine) Specialty Diagnoses / Procedures Referred By Contac t Referred To Contact Diagnoses Positive colorectal cancer screening using Cologuard test Encounter for screening colonoscopy Positive colorectal cancer screening using Cologuard test [R19.5] Encounter for screening colonoscopy [Z12.11] Procedures MN COLONOSCOPY FLX DX W/COLLJ SPEC WHEN PFRMD COLONOSCOPY Referral ID Status Reason Start Date Expiration Date Visits Re quested Visits Authorized [id number] 1 1 Encounter Details Date Type Department Care Team (Late st Contact Info) Description 04/11/2023 9:33 AM CDT Anesthesia Event [facility] [address] [place] [id number] Gregory Bruno MD [address] [place] [address] [place] [address] Anesthesia Record Procedure Summary Procedure Name Responsible Anesthesiologist Anesthesia Start Time Anesthesia Stop Time COLON REMOVAL SNARE Gregory Bruno MD 04/11/23 0933 04/11/23 0959 Events Date Time Event Comment 04/11/2023 0920 0924 In Room 0926 An Start Data 0933 An Start 0933 Start Supplemental O2 0933 Patient Positioned Laterally 0935 An Induction The patient was reevaluated immediately before moderate or deep sedation use and before anesthesia induction. 0935 Anesthesia Ready 0935 Proc Start 0959 an stop data 0959 Proc Fin 0959 Handoff to RN I completed my handoff to the receiving nurse during which we: 1. Patient identified 2. Responsible provider identified 3. Pertinent medical history reviewed 4. Procedure type and surgical course discussed 5. Intraoperative anesthetic management and any significant issues discussed 6. Expectations and concerns for postop period discussed 7. Questions solicited from receiving nurse 8. Patient disposition at the time of handoff: No value filed. 0959 An Stop 1003 Out of Room Meds Name Total lidocaine (cardiac) syringe 2 % 100 mg propofol 480 mg sodium chloride 0.9% infusion 400 mL * Agents Name O2 * Blood No blood administrations on file. 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 Gender Identity Not on file Sexual Orientation Not on file documented as of this encounter OR Notes * Anesthesia Postprocedure Evaluation - Gregory Bruno MD - 04/11/2023 10:05 AM CDT Patient: Luna Mcfadden Procedure Summary Date: 07/20/23 Room / Location: [facility] ENDOSCOPY ROOM 2 / [facility] Anesthesia Start: 932 Anesthesia Stop: 958 Procedure: COLON REMOVAL SNARE Diagnosis: Positive colorectal cancer screening using Cologuard test Encounter for screening colonoscopy (Positive colorectal cancer screening using Cologuard test [R19.5]) (Encounter for screening colonoscopy [Z12.11]) Providers: Hernan Piña MD Responsible Provider: Gregory Bruno MD Anesthesia Type: general/TIVA ASA Status: 2 Anesthesia Type: general/TIVA Last vitals BP 124/84 Pulse 70 Resp 16 SpO2 100% Anesthesia Post Evaluation Patient location during evaluation: PACU Patient participation: complete - patient participated Level of consciousness: fully awake Pain management: adequate Airway patency: adequate Evidence of recall: no Cardiovascular status: acceptable Respiratory status: acceptable Hydration status: acceptable Pt is: normothermic Nausea/Vomiting status: none No notable events documented. * Anesthesia Preprocedure Evaluation - Gregory Bruno MD - 04/11/2023 8:28 AM CDT Images from the original note were not included. Anesthesia Evaluation Luna Mcfadden is a 47 y.o. female Procedure(s): COLONOSCOPY Pre-Op Diagnosis Codes: * Positive colorectal cancer screening using Cologuard test [R19.5] * Encounter for screening colonoscopy [Z12.11] HISTORY Past Medical History Information obtained from: patient and chart. Neurological Neuro/Psych system: negative Cardiovascular Cardiac system: negative Respiratory + Asthma Hepatic / Heme Hepatic/Heme system: negative Gastrointestinal GI system: negative Renal / Renal/ system: negative Musculoskeletal/Pain Musculoskeletal/Pain system: negative Endocrine / Other Endocrine/Other system: negative Day of Surgery assessments + Possibility of assessed - HCG negative (see labs). 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 No pertinent surgical history. OB History No obstetric history on file. No Known Allergies Taking? Last Dose Start Date End Date Provider albuterol HFA (PROVENTIL HFA,VENTOLIN HFA,PROAIR HFA) 90 mcg/actuation inhaler -- 02/25/23 -- Jonathan Woods MD Inhale 2 puffs 4 (four) times a day No current facility-administered medications for this encounter. Social History Tobacco Use Smoking Status Never Smokeless Tobacco Not on file Alcohol Use: Not on file Substance and Sexual Activity Drug Use Not on file Family History Problem Relation Age of Onset Diabetes type II Father 63 Diabetes -Type 2; Prostate cancer Father Cancer, prostate; There were no vitals filed for this visit. PT: No results found for requested labs within last 30 days. INR: No results found for requested labs within last 30 days. APTT: No results found for requested labs within last 30 days. Hgb A1C: No results found for requested labs within last 30 days. CBC RBC: No results found for requested labs within last 30 days. RDW: No results found for requested labs within last 30 days. MCHC: No results found for requested labs within last 30 days. MCH: No results found for requested labs within last 30 days. MCV: No results found for requested labs within last 30 days. Hct: No results found for requested labs within last 30 days. Hgb: No results found for requested labs within last 30 days. WBC: No results found for requested labs within last 30 days. MPV: No results found for requested labs within last 30 days. Platelets: No results found for requested labs within last 30 days. RDW CV: No results found for requested labs within last 30 days. RDW Sd: No results found for requested labs within last 30 days. BMP Glucose: No results found for requested labs within last 30 days. Calcium: No results found for requested labs within last 30 days. Sodium: No results found for requested labs within last 30 days. Potassium: No results found for requested labs within last 30 days. CO2: No results found for requested labs within last 30 days. Chloride: No results found for requested labs within last 30 days. BUN: No results found for requested labs within last 30 days. Creatinine: No results found for requested labs within last 30 days. STOP-Bang Total Score: 0 DOS Physical Exam Medical history, medications, and allergies reviewed. Attestation: I endorse the findings of the anesthesia pre-evaluation assessment dated: 04/11/2023. Airway Exam: Mallampati: I Cervical ROM: FROM TM distance: normal Cardiovascular Exam: Rate: regular Rhythm: regular Pulmonary Exam: LCTA, bilat Dental Exam: Appears intact Current state: Patient's current state is cooperative and interactive. Anesthesia Plan ASA 2 My patient is approved for the Anesthesia Controlled Medication protocol when under care of a ROUTE DELIVERY SUPERVISOR Planned anesthesia: General/TIVA Induction: Induction: intravenous. Postoperative Plan: No plan for postoperative opioid use. No postoperative mechanical ventilation intended. Patient's planned disposition post procedure is Outpatient. Informed Consent: Discussed plan with attending and ROUTE DELIVERY SUPERVISOR. Anesthesia plan and risks discussed with patient. Consent and Attending signature: I and/or my designee have discussed the anesthesia plan, benefits, possible alternatives, parental presence at time of induction (if indicated), and clinically relevant risks that may include dental injury, unintentional awareness, and/or other complications. The patient and/or parent/legal guardian understand, and agree to proceed. All questions answered. documented in this encounter Plan of Treatment Not on file documented as of this encounter Visit Diagnoses Not on filedocumented in this encounter Administered Medications Inactive Administered Medications - up to 3 most recent administrations Medication Order MAR Action Action Date Dose Rate Site lidocaine (XYLOCAINE) 20 mg/mL (2 %) preservative free injection intravenous, As needed, Starting on Sameera 04/11/23 at 0935, Anesthesia Intra-op Given 04/11/2023 9:35 AM CDT 100 mg propofoL (DIPRIVAN) 10 mg/mL IV intravenous, As needed, Starting on Sameera 04/11/23 at 0935, Anesthesia Intra-op Given 04/11/2023 9:59 AM CDT 50 mg Given 04/11/2023 9:53 AM CDT 30 mg Given 04/11/2023 9:52 AM CDT 30 mg sodium chloride 0.9% infusion 30 mL/hr, intravenous, Continuous, Starting on Sameera 04/11/23 at 0930, Pre-Procedure (GI) Restarted 04/11/2023 9:35 AM CDT Rate/Dose Verify 04/11/2023 9:33 AM CDT 30 mL/h r New Bag 04/11/2023 9:12 AM CDT 30 mL/hr 30 mL/hr documented in this encounter Care Teams Live Out Nanny Relationship Specialty Start Date End Date Jonathan Woods MD PCP - General 08/27/12 documented as of this encounter
--- OUTSIDE RECORDS SUMMARY | 2024-09-21 11:17 | XMS_ITS | Encounter Summary ---
Author Organization [facility] Address [address] [place] [address] Care Team Providers Care Porter Used Car Lot Name Role Phone Jonathan Woods MD Primary Care Provider Reason for Visit * Reason Comments Preventative Care Encounter Details Date Type Department Care Team (Late st Contact Info) Description 04/03/2019 9:00 AM CDT Office Visit [facility] [address] [place] [address] Jonathan Woods MD [address] [place] [address] [address] [place] [address] Annual physical exam (Primary Dx); BMI 26.0-26.9,adult Social History Tobacco Use Types Packs/Day Years Used Date Smoking Tobacco: Never Alcohol Use Standard Drinks/Week Comments Yes 0 (1 standard drink = 0.6 oz pur e alcohol) Comments Unknown Sex and Gender Information Value Date Recorded Sex Assigned at Not on file 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 Gender Identity Not on file Sexual Orientation Not on file documented as of this encounter Last Filed Vital Signs Vital Sign Reading Time Taken Comments Blood Pressure 98/72 04/03/2019 9:07 AM CDT Pulse 60 04/03/2019 9:07 AM CDT Temperature - - Respiratory Rate 16 04/03/2019 9:07 AM CDT Oxygen Saturation - - Inhaled Oxygen Concentration - - Weight 69.9 kg (154 lb) 04/03/2019 9:07 AM CDT Height 162.6 cm (5' 4 ) 04/03/2019 9:07 AM CDT Body Mass Index 26.43 04/03/2019 9:07 AM CDT documented in this encounter Progress Notes * Jonathan Woods MD - 04/03/2019 9:00 AM CDT [facility] DATE: 1975 Vitals: 04/03/19 0907 BP: 98/72 Pulse: 60 Resp: 16 Weight: 69.9 kg (154 lb) Height: 162.6 cm (5' 4 ) Body mass index is 26.43 kg/m??. Chief Complaint Chief Complaint Patient presents with ??? Preventative Care HPI Luna Mcfadden is a 43 y.o. female presents today for her by annual physical exam. She is doing very well and just use a little bit of albuterol before her races. She goes all over the country doing long distance running and she gets a little wheezy sometimes. Her knees and hips are doing okay though and no other complaints. She gets her clinic manager checkups elsewhere Social History Socioeconomic History ??? Marital status: Spouse name: Not on file ??? Number of children: Not on file ??? Years of education: Not on file ??? Highest education level: Not on file Occupational History ??? Not on file Social Needs ??? Financial resource strain: Not on file ??? Food insecurity: Worry: Not on file Inability: Not on file ??? Transportation needs: Medical: Not on file Non-medical: Not on file Tobacco Use ??? Smoking status: Never Smoker Substance and Sexual Activity ??? Alcohol use: Yes ??? Drug use: Not on file ??? Sexual activity: Not on file Lifestyle ??? Physical activity: Days per week: Not on file Minutes per session: Not on file ??? Stress: Not on file Relationships ??? Social connections: Talks on phone: Not on file Gets together: Not on file Attends nondenominational service: Not on file Active member of club or organization: Not on file Attends meetings of clubs or organizations: Not on file Relationship status: Not on file ??? Intimate partner violence: Fear of current or ex partner: Not on file Emotionally abused: Not on file Physically abused: Not on file Forced sexual activity: Not on file Other Topics Concern ??? Not on file Social History Narrative ??? Not on file Active Ambulatory Problems Diagnosis Date Noted ??? [...] for visual disturbance. Respiratory: Positive for chest tightness, shortness of breath and wheezing. Negative for cough. Cardiovascular: Negative for chest pain, palpitations and [...] and sleep disturbance. PHYSICAL EXAM Physical Exam Constitutional: She is oriented to person, place, and time. She appears well- developed and well-nourished. HENT: Head: Normocephalic and atraumatic. Right Ear: External ear normal. Left Ear: External ear normal. Nose: Nose normal. Mouth/Throat: Oropharynx is clear and moist. Eyes: Pupils are equal, round, and reactive to light. Conjunctivae and EOM are normal. Neck: Normal range of motion. Neck supple. Cardiovascular: Normal rate, regular rhythm, normal heart sounds and intact distal pulses. Pulmonary/Chest: Breath sounds normal. Abdominal: Soft. Bowel sounds are normal. Musculoskeletal: Normal range of motion. Neurological: She is alert and oriented to person, place, and time. She has normal reflexes. Skin: Skin is warm and dry. Psychiatric: She has a normal mood and affect. Nursing note and vitals reviewed. LAST LABS Lab Results Component Value Date CHOL 176 03/20/2019 TRIG 44 03/20/2019 HDL 89 03/20/2019 ALT 15 03/20/2019 AST 25 03/20/2019 SODIUM 142 03/20/2019 POTASSIUM 4.2 03/20/2019 CHLORIDE 107 03/20/2019 CREATININE 0.64 03/20/2019 BUNSER 13 03/20/2019 CO2 25 03/20/2019 ASSESSMENT AND PLAN Assessment/Plan Diagnoses and all orders for this visit: Annual physical exam (Primary) - Comprehensive metabolic panel; Future - Lipid panel; Future She is up-to-date with all of her preventive services including clinic manager checkups. She just had bifocal contact lenses so that is working out well for her. Urged to get a flu shot a fall BMI 26.0-26.9,adult Excellent weight control she is very physically active with 20 miles a week of running No future appointments. All past family, medical, [...] dictated and transcribed by with assistance from [employer]. Lead Business Systems Analyst variances may occur. Despite proofreading, typographical errors may occur. documented in this encounter Plan of Treatment Not on file documented as of this encounter Procedures Procedure Name Priority Date/Time Associated Diagnosis Comments HM PAP SMEAR WITH HPV Routine 02/25/2019 documented in this encounter Results * HM PAP SMEAR WITH HPV (02/25/2019) Pap smear Normal us Historical Provider HEALTH MAINTENANCE Final Result documented in this encounter Visit Diagnoses Diagnosis Annual physical exam- Primary Routine general medical examination at a health care facility BMI 26.0-26.9,adult documented in this encounter Care Teams Porter [employer] Relationship Specialty Start Date End Date Jonathan Woods MD PCP - General 08/27/12 documented as of this encounter
--- OUTSIDE RECORDS SUMMARY | 2024-09-21 11:17 | XMS_ITS | Encounter Summary ---
Author Organization [facility] Address [address] [place] [address]. [place] [address] [place] [address] Care Team Providers Care Professor Of Physics Name Role Phone Non-Staff, Provider Primary Care Provider Ino lassiter Encounter Details Date Type Department Care Team (Late st Contact Info) Description 09/27/2021 2:20 PM SUBSTATION ELECTRICIAN SUPERVISOR Laboratory Only [facility] [address] [place] [address] Lex Alva MD [facility] [place] [address] Social History Tobacco Use Types Packs/Day Years Used Date Smoking Tobacco: Never Assessed Comments Unknown Sex and Gender Information Value Date Recorded Sex Assigned at Not on file Legal Sex Female 6:13 PM SUBSTATION ELECTRICIAN SUPERVISOR Gender Identity Not on file Sexual Orientation Not on file COVID-19 Exposure Response Date Recorded In the last month, have you been in contact with someone who was confirmed or suspected to have Coronavirus / COVID-19? No / Unsure 09/27/2021 2:01 PM SUBSTATION ELECTRICIAN SUPERVISOR documented as of this encounter Plan of Treatment Not on file documented as of this encounter Procedures Procedure Name Priority Date/Time Associated Diagnosis Comments VITAMIN D, 25 OH Routine 09/27/2021 2:32 PM SUBSTATION ELECTRICIAN SUPERVISOR documented in this encounter Results * (ABNORMAL) VITAMIN D, 25 OH (09/27/2021 2:32 PM SUBSTATION ELECTRICIAN SUPERVISOR) VITAMIN D 25 HYDROXY S/P/B 27(L) 30 - 100 NG/ML 09/27/2021 5:15 PM SUBSTATION ELECTRICIAN SUPERVISOR [facility] () [facility] Comment: ? INTERPRETATION ? DEFICIENT ??<20 ? INSUFFICIENT 20-29 ?SUFFICIENT 30-100 09/27/2021 2:32 PM SUBSTATION ELECTRICIAN SUPERVISOR us Lex Alva MD LABORATORY Final Result Performing Organization Address City/State/[facility] Co de Phone Number [facility] [address] [place] [address], documented in this encounter Visit Diagnoses Not on filedocumented in this encounter Care Teams Professor Of Physics Relationship Specialty Start Date End Date Non-Staff, Provider PCP - General 09/27/21 documented as of this encounter
--- OUTSIDE RECORDS SUMMARY | 2024-09-21 11:17 | XMS_ITS | Encounter Summary ---
Author Organization [facility] Address [address] [place] [address] Care Team Providers Care Health Assessment And Treatment Teacher Name Role Phone Jonathan Woods MD Primary Care Provider Reason for Visit * Auth/Cert (Routine) Specialty Diagnoses / Procedures Referred By Contac t Referred To Contact Diagnoses Positive colorectal cancer screening using Cologuard test Encounter for screening colonoscopy Positive colorectal cancer screening using Cologuard test [R19.5] Encounter for screening colonoscopy [Z12.11] Procedures ND COLONOSCOPY FLX DX W/COLLJ SPEC WHEN PFRMD COLONOSCOPY Referral ID Status Reason Start Date Expiration Date Visits Re quested Visits Authorized [id number] 1 1 Encounter Details Date Type Department Care Team (Late st Contact Info) Description 04/11/2023 9:35 AM CDT - 04/11/2023 10:05 AM CDT Surgery [facility] [address] [place] [address] Hernan Piña MD [address] [place] [address] [address] [place] [address] COLON REMOVAL SNARE Surgery Details Date/Time Status Location OR Service Patient Class Case Class Case Type Trauma Case? 04/11/2023 9:35 AM Posted [facility] END[facility]COPY GI 02 Gastroenterology Outpatient Elective Panel 1 Procedure LRB Anes Op Region Wound Class Comments COLON REMOVAL SNARE N/A Monitor Anesthesia Care Surgeon Surgeon Role Service Panel Hernan Piña MD Primary Gastroenterology 1 documented in this encounter Social History Tobacco [...] on file Legal Sex Female 5:06 PM BLOCKER HAND Gender Identity Not on file Sexual Orientation Not on file documented as of this encounter Last Filed Vital Signs Vital Sign Reading Time Taken Comments Blood Pressure 159/56 04/11/2023 10:05 AM CDT Pulse 67 04/11/2023 10:05 AM CDT Temperature - - Respiratory Rate 16 04/11/2023 10:05 AM CDT Oxygen Saturation 100% 04/11/2023 10:05 AM CDT Inhaled Oxygen Concentration - - [...] per Anesthesia Team) 04/11/2023 8:52 AM Patient: Silvia Smart, date of 1975 Procedure(s) planned: Colonoscopy [...] Medical History: Diagnosis Date HX 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 Room: [facility] ENDOSCOPY ROOM 2 Note Status: [...] by the physician, the anesthesiologist and the electronic engineering technician in the endoscopy suite. Mental Status [...] under direct vision. The Pediatric Colonoscope PCF-H190L [id number] was introduced through the anus and advanced [...] 9:22 AM Procedure Code(s): --- Professional --- 98566, Colonoscopy, flexible; with removal of tumor(s), polyp(s), or other lesion(s) by snare technique --- Technical --- 18717, Colonoscopy, flexible; with removal of tumor(s), polyp(s), or other lesion(s) by snare technique Diagnosis Code(s): --- Professional --- K64.8, Other hemorrhoids D12.4, Benign neoplasm of descending colon R19.5, Other fecal abnormalities --- Technical --- K64.8, Other hemorrhoids D12.4, Benign neoplasm of descending colon R19.5, Other fecal abnormalities CPT copyright 2020 [employer] [employer]. All rights reserved. The codes documented in this report are preliminary and upon scales inspector review may be revised to meet current compliance requirements. Recognized by the [place] [employer] for promoting quality [...] 04/11/2023 9:50 AM CDT Narrative PATHOLOGY [facility]) - 04/12/2023 10:56 AM CDT EPIC results best viewed via link to PDF [facility] Department of Pathology [address] [place], [place] [id number] Note to Patients: This report may contain [...] explain the details. Final Report Patient Name: ??SILVIA SMART Address: ??[address] [place] [address], ??[place], [place] ??[address] Gender: ??F : ??1975 (Age: 47) Service: ??Gastro Location: ??[facility] Hospital #: ??[id number] Patient Type: ??[facility] Accession # ?[id number] Taken: ??04/11/2023 Received: ??04/11/2023 Accessioned: ??04/11/2023 Reported: [...] in a single formalin filled container labeled SILVIA SMART and descending polyp . ??It is [...] by the Surgical Pathology Department at [facility] as part of an ongoing quality tech program and in compliance with federally mandated [...] characteristics determined by the Surgical Pathology Department [facility]. ??It has not been cleared or approved by the U. S. Food and Drug Administration. Note for decalcified specimens: This assay has not been validated on decalcified tissues. Results should be interpreted with caution given the possibility of false negativity on decalcified specimens Hernan Piña MD LAB PATHOLOGY ORDERABLES Final R esult Performing Organization Address City/State/[facility] Co de Phone Number PATHOLOGY [address] [address] * COLONOSCOPY (04/11/2023 9:22 AM CDT) Anatomical Region Laterality Modality Other Narrative Procedure Note Hernan Piña MD - 04/11/2023 9:22 AM CDT [facility] Patient Name: Silvia Smart Procedure Date: 04/11/2023 9:22 AM Date of : 1975 Admit Type: Outpatient Age: 47 Gender: Female Attending MD: Hernan Piña M.D. Room: [facility] ENDOSCOPY ROOM 2 Note Status: [...] by the physician, the anesthesiologist and the electronic engineering technician in the endoscopy suite. MentalStatus Examination: [...] passed under direct vision.The Pediatric Colonoscope PCF-H190L [id number] was introduced through the anus and advanced [...] 9:22 AM Procedure Code(s): --- Professional --- 83813, Colonoscopy, flexible; with removal of tumor(s), polyp(s), or other lesion(s) by snare technique --- Technical --- 32710, Colonoscopy, flexible; with removal of tumor(s), polyp(s), or other lesion(s) by snare technique Diagnosis Code(s): --- Professional --- K64.8, Other hemorrhoids D12.4, Benign neoplasm of descending colon R19.5, Other fecal abnormalities --- Technical --- K64.8, Other hemorrhoids D12.4, Benign neoplasm of descending colon R19.5, Other fecal abnormalities CPT copyright 2020 [place] [employer]. All rights reserved. The codes documented in this report are preliminary and upon scales inspector reviewmay be revised to meet current compliance requirements. Recognized by the [place] [employer] for promoting quality [...] Kovacs RN)[phone] (Rate/Dose Verify - Provider: Gregory Bruno MD)[phone] (Paused - Provider: Gregory Bruno MD [...] 04/11/2023 documented in this encounter Care Teams Health Assessment And Treatment Teacher Relationship Specialty Start Date End Date Jonathan Woods MD PCP - General 08/27/12 documented as of this encounter
--- OUTSIDE RECORDS SUMMARY | 2024-09-21 11:17 | XMS_ITS | Encounter Summary ---
Author Organization [facility] Address [address] [place] [address]. 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 No / Unsure 09/27/2021 2:01 PM FARMWORKER [employer]ARM documented as of this encounter Plan of Treatment Not on file documented as of this encounter Visit Diagnoses Not on filedocumented in this encounter Care Teams Foreign Trade Teacher Relationship Specialty Start Date End Date Non-Staff, Provider PCP - General 09/27/21 documented as of this encounter
--- OUTSIDE RECORDS SUMMARY | 2024-09-21 11:18 | XMS_ITS | Encounter Summary ---
Author Organization [facility] Address [address] [place] [address] Care Team Providers Care Tuber Machine Operator Name Role Phone Jonathan Woods MD Primary Care Provider Reason for Referral * Diagnostic Imaging (Routine) - Closed Specialty Diagnoses / Procedures Referred By Prabhakar burch Referred To Contact Procedures Screening Mammogram Bilateral W [place] [facility] Health Information Management [address] [place] [address] Phone: tel: fax: Referral ID Status Reason Start Date Expiration Date Visits Re quested Visits Authorized [id number] Closed 03/11/2019 09/19/2020 1 1 Encounter Details Date Type Department Care Team (Late st Contact Info) Description 02/26/2019 Orders Only [facility] Health Information Management [address] [place] [id number] Jonathan Woods MD [address] [place] [address] [place] [address] Social History Tobacco Use Types Packs/Day Years Used Date Smoking Tobacco: Never Alcohol Use Standard Drinks/Week Comments Yes 0 (1 standard drink = 0.6 oz pur e alcohol) PHQ-2 Answer Date Recorded PHQ-2 Score 0 05/15/2019 Comments Unknown Sex and Gender Information Value Date Recorded Sex Assigned at Not on file 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 Gender Identity Not on file Sexual Orientation Not on file documented as of this encounter Plan of Treatment Not on file documented as of this encounter Procedures Procedure Name Priority Date/Time Associated Diagnosis Comments SCREENING MAMMOGRAM BILATERAL W [place] Schedule Routine, Read Routine (OP Routine) 02/26/2019 documented in this encounter Results * Screening Mammogram Bilateral W [place] (02/26/2019) Anatomical Region Laterality Modality Breast Bilateral Mammography us Historical Provider MD [facility] MAM[facility] PROCEDURES Lizzie l Result documented in this encounter Visit Diagnoses Not on filedocumented in this encounter Care Teams Tuber Machine Operator Relationship Specialty Start Date End Date Jonathan Woods MD PCP - General 08/27/12 documented as of this encounter
--- OUTSIDE RECORDS SUMMARY | 2024-09-21 11:18 | XMS_ITS | Encounter Summary ---
Author Organization [facility] Address [address] [place] [address] Care Team Providers Care Primary School Teacher Librarian Name Role Phone Unavailable Primary Care Provider Unavailabl e Encounter Details Date Type Department Care Team (Latest Contact Info) Description 11/25/2002 Outpatient Historical [facility] Zaida Reed ABNORM NEC-ANTEPAR (Primary Dx) Social History Tobacco Use Types Packs/Day Years Used Date Smoking Tobacco: Never Assessed Sex and Gender Information Value Date Recorded Sex Assigned at Not on file Gender Identity Not on file Sexual Orientation Not on file documented as of this encounter Plan of Treatment Not on file documented as of this encounter Visit Diagnoses Diagnosis Other known or suspected abnormality, not elsewhere classified, affecting management of mother, antepartum condition or complication- Primary documented in this encounter
--- OUTSIDE RECORDS SUMMARY | 2024-09-21 11:18 | XMS_ITS | Encounter Summary ---
Author Organization [facility] Address [address] [place] [address] Care Team Providers Care Stonework Supervisor Name Role Phone Jonathan Woods MD Primary Care Provider Encounter Details Date Type Department Care Team (Late st Contact Info) Description 06/28/2017 Orders Only [facility] Health Information Management [address] [place] [address] Scanning, Provider Social History Tobacco Use Types Packs/Day Years Used Date Smoking Tobacco: Never Alcohol Use Standard Drinks/Week Comments Yes 0 (1 standard drink = 0.6 oz pur e alcohol) PHQ-2 Answer Date Recorded PHQ-2 Score 0 05/15/2019 Comments Unknown Sex and Gender Information Value Date Recorded Sex Assigned at Not on file Legal Sex Female 5:[address] JUSTICE Gender Identity Not on file Sexual Orientation Not on file documented as of this encounter Plan of Treatment Not on file documented as of this encounter Procedures Procedure Name Priority Date/Time Associated Diagnosis Comments SCAN - RADIOLOGY/IMAGING 06/28/2017 10:34 AM CDT documented in this encounter Results * SCAN - RADIOLOGY/IMAGING (06/28/2017 10:34 AM CDT) Anatomical Region Laterality Modality Other us Provider Scanning Final Result documented in this encounter Visit Diagnoses Not on filedocumented in this encounter Care Teams Stonework Supervisor Relationship Specialty Start Date End Date Jonathan Woods MD PCP - General 08/27/12 documented as of this encounter
--- OUTSIDE RECORDS SUMMARY | 2024-09-21 11:18 | XMS_ITS | Encounter Summary ---
Author Organization [facility] Address [address] [place] [address] Care Team Providers Care Learning And Development Assistant Name Role Phone Jonathan Woods MD Primary Care Provider Encounter Details Date Type Department Care Team (Late st Contact Info) Description 03/20/2019 7:30 AM CDT Lab [facility] [address] [place] [id number] Routine lab draw Social History Tobacco Use Types Packs/Day Years Used Date Smoking Tobacco: Never Alcohol Use Standard Drinks/Week Comments Yes 0 (1 standard drink = 0.6 oz pur e alcohol) Comments Unknown Sex and Gender Information Value Date Recorded Sex Assigned at Not on file 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
--- OUTSIDE RECORDS SUMMARY | 2024-09-21 11:18 | XMS_ITS | Encounter Summary ---
Author Organization [facility] Address [address] [place] [address] Care Team Providers Care Associate Professor Of Engineering Name Role Phone Jonathan Woods MD Primary Care Provider Reason for Visit * Reason Comments Preventative Care Encounter Details Date Type Department Care Team (Late st Contact Info) Description 04/02/2017 1:30 PM CDT Office Visit [facility] [address] [place] [address] Jonathan Woods MD [address] [place] [address] [address] [place] [address] Annual physical exam (Primary Dx) Social History Tobacco Use Types Packs/Day Years Used Date Smoking Tobacco: Never Alcohol Use Standard Drinks/Week Comments Yes 0 (1 standard drink = 0.6 oz pur e alcohol) Comments Unknown Sex and Gender Information Value Date Recorded Sex Assigned at Not on file 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 Gender Identity Not on file Sexual Orientation Not on file documented as of this encounter Last Filed Vital Signs Vital Sign Reading Time Taken Comments Blood Pressure 110/70 04/02/2017 1:38 PM CDT Pulse 76 04/02/2017 1:38 PM CDT Temperature - - Respiratory Rate 16 04/02/2017 1:38 PM CDT Oxygen Saturation - - Inhaled Oxygen Concentration - - Weight 69.4 kg (153 lb) 04/02/2017 1:38 PM CDT Height 162.6 cm (5' 4 ) 04/02/2017 1:38 PM CDT Body Mass Index 26.26 04/02/2017 1:38 PM CDT documented in this encounter Ordered Prescriptions Prescription Sig Dispense Quantity Refills Last Filled Start Date End Date albuterol HFA (PROVENTIL HFA,VENTOLIN HFA) 90 mcg/actuation inhaler Inhale 2 puffs 4 (four) times a day. 1 Inhaler 11 04/02/2017 02/04/2019 documented in this encounter Progress Notes * Jonathan Woods MD - 04/02/2017 1:30 PM CDT Subjective/Objective Patient ID: Luna Mcfadden is a 41 y.o. female. Chief Complaint Preventative Care HPI The patient is in for yearly preventive exam in follow-up visit. She gets her veterinary microbiologist is exam is elsewhere. Her menstrual cycles are pretty routine actually. The patient is actively exercising and mostlydoes a lot of running. She is in all sorts of competitive events as well. Review of Systems Constitutional: Negative for chills, [...] Negative for dysphoric mood and sleep disturbance. Physical Exam Constitutional: She is oriented to person, place, and time. She appears well- developed and well-nourished. HENT: Head: Normocephalic and atraumatic. Right Ear: External ear normal. Left Ear: External ear normal. Nose: Nose normal. Mouth/Throat: Oropharynx is clear and moist. Eyes: Conjunctivae and EOM are normal. Pupils are equal, round, and reactive to light. Neck: Normal range of motion. Neck supple. [...] and affect. Nursing note and vitals reviewed. Assessment/Plan Diagnoses and all orders for this visit: 1. Annual physical exam (Primary) - Lipid panel; Future - Comprehensive metabolic panel; Future Patient's lab work was reviewed she is in excellent shape. She exercised vigorously and is lean andhas absolutely no symptoms of cardiovascular problems. She does take a little pre exercise dose of albuterol on a rare basis. He all caught up with her routine veterinary microbiologist checkups and vaccines. Her to get aflu Other orders - albuterol HFA (PROVENTIL HFA,VENTOLIN HFA) 90 mcg/actuation inhaler; Inhale 2 puffs 4 (four) times a day. documented in this encounter Miscellaneous Notes * Addendum Note - Ankit Andres CLT - 04/02/2017 1:30 PM CDTAddended by: ANKIT ANDRES on: 03/20/2019 07:26 AM Modules accepted: Orders documented in this encounter Plan of Treatment Not on file documented as of this encounter Procedures Procedure Name Priority Date/Time Associated Diagnosis Comments HM MAMMOGRAPHY Routine 04/04/2016 documented in this encounter Results * Comprehensive metabolic panel (03/20/2019 1:31 PM CDT) Sodium 142 135 - 145 mmol/L [facility] Potassium, pl 4.2 3.3 - 4.9 mmol/L [facility] Chloride 107 97 - 110 mmol/L [facility] CO2 25 22 - 32 mmol/L [facility] Anion gap 10 2 - 15 mmol/L [facility] BUN 13 8 - 25 mg/dL [facility] Creatinine 0.64 0.60 - 1.10 mg/dL [facility] Glucose 94 70 - 199 mg/dL [facility] Comment: Interpretive Data Fasting glucose >/= 126 [...] interpretive data was last revised 2017. Calcium 8.9 8.5 - 10.3 mg/dL [facility] Bilirubin, total 0.3 0.1 - 1.2 mg/dL [facility] Protein, pl 6.6 6.5 - 8.5 g/dL [facility] Albumin 4.1 3.5 - 5.0 g/dL [facility] Alk phos 41 40 - 130 Units/L [facility] ALT 15 7 - 45 Units/L [facility] AST 25 10 - 45 Units/L [facility] Blood specimen (specimen) 03/20/2019 1:31 PM CDT 03/20/2019 1:50 PM CDT Jonathan Woods MD LAB BLOOD ORDERABLES Fi [facility]al [facility] [address] Department [place] [address] * Lipid panel (03/20/2019 1:31 PM CDT) Cholesterol 176 30 - 199 mg/dL [facility] Comment: Interpretive Data Ages < or = [...] Data was last revised on 2018. Triglycerides 44 <=149 mg/dL [facility] Comment: Interpretive Data Ages < or = [...] Data was last revised on 2018. HDL 89 >=40 mg/dL [facility] Comment: Interpretive Data Ages < or = [...] was last revised on 2018. LDL, calculated 78 <=129 mg/dL [facility] Comment: Interpretive Data Ages < or = [...] was last revised on 2018. Non-HDL Cholesterol 87 mg/dL [facility] Comment: Interpretive Data Ages < or = [...] last revised on 2018. Chol/HDL ratio 2 [facility] Blood specimen (specimen) 03/20/2019 1:31 PM CDT 03/20/2019 1:50 PM CDT Jonathan Woods MD LAB BLOOD ORDERABLES Fi nal Result [facility] [address] Department [place] [address] * MAMMOGRAPHY (04/04/2016) Mammogram Normal us Historical Provider HEALTH MAINTENANCE Final Result documented in this encounter Visit Diagnoses Diagnosis Annual physical exam- Primary Routine general medical examination at a health care facility documented in this encounter Discontinued Medications Medication Sig Discontinue Reason Start Date End Da te albuterol HFA (PROVENTIL HFA,VENTOLIN HFA) 90 mcg/actuation inhaler inhale 2 puff by inhalation route every 4 - 6 hours as needed Reorder 08/27/2012 04/02/2017 documented as of this encounter Care Teams Associate Professor Of Engineering Relationship Specialty Start Date End Date Jonathan Woods MD PCP - General 08/27/12 documented as of this encounter
--- OUTSIDE RECORDS SUMMARY | 2024-09-21 11:18 | XMS_ITS | Clinical Summary ---
Author Organization [facility] Address [address] Velan: Epic Prelude ADT [place] [address] Care Team Providers Care Business Agent Name Role Phone Unavailable Primary Care Provider Unavailabl e Social History Tobacco Use Types Packs/Day Years Used Date Smoking Tobacco: Never Assessed Sex and Gender Information Value Date Recorded Sex Assigned at Not on file Gender Identity Not on file Sexual Orientation Not on file Plan of Treatment Health Maintenance Due Date Last Done Comments DTAP/TDAP/TD VACCINES (1 - Tdap) 1992 HEPATITIS B VACCINES (1 of 3 - 19+ 3-dose series) 1992 CERVICAL CANCER SCREENING 2003 BREAST CANCER SCREENING 2013 COLORECTAL SCREENING 2018 Colorectal Cancer Screening 2018 FIT-DNA Q 3 years 2018 FIT/FOBT Q 1 year 2018 Flex Sig/CT Colonography Q 5 years 2018 ZOSTER VACCINE (1 of 2) 2023 INFLUENZA VACCINE (#1) 2024 PNEUMOCOCCAL VACCINE 0-64 YEARS Aged Out No longer eligible based on patient's age to complete this topic
--- OUTSIDE RECORDS SUMMARY | 2024-09-21 11:18 | XMS_ITS | Encounter Summary ---
Author Organization [facility] Address [address] [place] [address] Care Team Providers Care Tufter Name Role Phone Unavailable Primary Care Provider Unavailabl e Encounter Details Date Type Department Care Team (Late st Contact Info) Description 11/25/2002 Outpatient Historical [facility] Maternal and Ground Floor S [facility] [address] [place] [address] Beau Bryant MD [address] [place] [address] Social History Tobacco Use Types Packs/Day Years [...]
--- OUTSIDE RECORDS SUMMARY | 2024-09-21 11:18 | XMS_ITS | Encounter Summary ---
Author Organization [facility] Healthcare Address [address] [place] [address] Care Team Providers Care Finished Goods Planner Name Role Phone Jonathan Woods MD Primary Care Provider Encounter Details Date Type Department Care Team (Late st Contact Info) Description 03/20/2019 1:50 PM CDT Lab [address] [address] Annual physical exam Social History Tobacco Use Types Packs/Day Years Used Date Smoking Tobacco: Never Alcohol Use Standard Drinks/Week Comments Yes 0 (1 standard drink = 0.6 oz pur e alcohol) Comments Unknown Sex and Gender Information Value Date Recorded Sex Assigned at Not on file 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 Gender Identity Not on file Sexual Orientation Not on file documented as of this encounter Plan of Treatment Not on file documented as of this encounter Procedures Procedure Name Priority Date/Time Associated Diagnosis Comments EGFR Routine 03/20/2019 1:31 PM CDT Annual physical exam LIPID PANEL Routine 03/20/2019 1:31 PM CDT Annual physical exam COMPREHENSIVE METABOLIC PANEL Routine 03/20/2019 1:31 PM CDT Annual physical exam documented in this encounter Results * eGFR (03/20/2019 1:31 PM CDT) eGFR 108 mL/min/1.7 3 m2 [facility] Comment: Interpretive Data Reference Interval Normal ?>/= 90 mL/min/1.73m2 Mildly decreased* ? 60 - 89 mL/min/1.73m2 Mildly to moderately decreased ?45 - 59 mL/min/1.73m2 Moderately to severely decreased ??30 - 44 mL/min/1.73m2 Severely decreased ?15 - 29 mL/min/1.73m2 Kidney Failure ?< 15 ??mL/min/1.73m2 *Relative to young adult level If -[place] multiply value by 1.16. Estimated glomerular filtration rate is determined by [...] 70. Current interpretive data was last reviewed 2016. Blood specimen (specimen) 03/20/2019 1:31 PM CDT 03/20/2019 1:52 PM CDT Jonathan Woods MD LAB BLOOD ORDERABLES Fi nal Result [facility] [address] Department [place] [address] * Lipid panel (03/20/2019 1:31 PM CDT) Pathologist [facility] Cholesterol 176 30 - 199 mg/dL [facility] RIOS Comment: Interpretive Data Ages [...] on 2018. Triglycerides 44 <=149 mg/dL [facility]OS Comment: Interpretive Data Ages [...] on 2018. HDL 89 >=40 mg/dL [facility]OS Comment: Interpretive Data Ages [...] 1:31 PM CDT 03/20/2019 1:50 PM CDT us Jonathan Woods MD LAB BLOOD ORDERABLES Fi nal Result [facility] [address] Department [place] [address] * Comprehensive metabolic panel (03/20/2019 1:31 PM [...] 1:31 PM CDT 03/20/2019 1:50 PM CDT us Jonathan Woods MD LAB BLOOD ORDERABLES Fi nal Result [facility] [address] Department [place] [address] documented in this encounter Visit Diagnoses Diagnosis Annual physical exam Routine general medical examination at a health care facility documented in this encounter Care Teams Finished Goods Planner Relationship Specialty Start Date End Date Jonathan Woods MD PCP - General 08/27/12 documented as of this encounter
--- OUTSIDE RECORDS SUMMARY | 2024-09-21 11:18 | XMS_ITS | Encounter Summary ---
Author Organization [facility] Address [address] [place] [address] Care Team Providers Care Credit Review Analyst Name Role Phone Jonathan Woods MD Primary Care Provider Encounter Details Date Type Department Care Team (Late st Contact Info) Description 03/13/2017 7:30 AM CDT Lab [facility] [address] [place] [phone] Social History Tobacco Use Types Packs/Day Years Used Date Smoking Tobacco: Never Alcohol Use Standard Drinks/Week Comments Yes 0 (1 standard drink = 0.6 oz pur e alcohol) Comments Unknown Sex and Gender Information Value Date Recorded Sex Assigned at Not on file 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
--- OUTSIDE RECORDS SUMMARY | 2024-09-21 11:18 | XMS_ITS | Encounter Summary ---
Author Organization [facility] Healthcare Address [address] [place] [address] Care Team Providers Care Machine Setter Supervisor Name Role Phone Jonathan Woods MD Primary Care Provider Encounter Details Date Type Department Care Team (Late st Contact Info) Description 02/07/2016 8:45 AM CDT - 02/07/2016 11:59 PM T Hospital Encounter [facility] Jonathan Woods MD [address] [place] [address] [address] Encounter for general adult medical examination without abnormal findings Social History Tobacco Use Types Packs/Day Years Used Date Smoking Tobacco: Never Alcohol Use Standard Drinks/Week Comments Yes 0 (1 standard drink = 0.6 oz pur e alcohol) Comments Unknown Sex and Gender Information Value Date Recorded Sex Assigned at Not on file 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 Gender Identity Not on file Sexual Orientation Not on file documented as of this encounter Medications at Time of Discharge albuterol HFA (PROVENTIL HFA,VENTOLIN HFA) 90 mcg/actuation inhaler inhale 2 puff by inhalation route every 4 - 6 hours as needed 1 Inhaler 11 08/27/2012 7 documented as of this encounter Plan of Treatment Not on file documented as of this encounter Visit Diagnoses Diagnosis Encounter for general adult medical examination without abnormal findings documented in this encounter Care Teams Machine Setter Supervisor Relationship Specialty Start Date End Date Jonathan Woods MD PCP - General 08/27/12 documented as of this encounter
--- OUTSIDE RECORDS SUMMARY | 2024-09-21 11:18 | XMS_ITS | Encounter Summary ---
Author Organization [facility] Medical [facility] Address [address] [place] [address] Care Team Providers Care Corporate Account Executive Name Role Phone Jonathan Woods MD Primary Care Provider Encounter Details Date Type Department Care Team (Late st Contact Info) Description 08/01/2017 Orders Only [facility] Health Information Management [address] [place] [address] Scanning, Provider Social History Tobacco Use Types Packs/Day Years Used Date Smoking Tobacco: Never Alcohol Use Standard Drinks/Week Comments Yes 0 (1 standard drink = 0.6 oz pur e alcohol) PHQ-2 Answer Date Recorded PHQ-2 Score 0 05/15/2019 Comments Unknown Sex and Gender Information Value Date Recorded Sex Assigned at Not on file Legal Sex Female 5:06 PM PRESIDENT [place] Gender Identity Not on file Sexual Orientation Not on file documented as of this encounter Plan of Treatment Not on file documented as of this encounter Procedures Procedure Name Priority Date/Time Associated Diagnosis Comments SCAN - RADIOLOGY/IMAGING 08/01/2017 10:44 AM PRESIDENT [place] documented in this encounter Results * SCAN - RADIOLOGY/IMAGING (08/01/2017 10:44 AM PRESIDENT [place]) Anatomical Region Laterality Modality Other us Provider Scanning Final Result documented in this encounter Visit Diagnoses Not on filedocumented in this encounter Care Teams Corporate Account Executive Relationship Specialty Start Date End Date Jonathan Woods MD PCP - General 08/27/12 documented as of this encounter
--- OUTSIDE RECORDS SUMMARY | 2024-09-21 11:18 | XMS_ITS | Encounter Summary ---
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
--- OUTSIDE RECORDS SUMMARY | 2024-09-21 11:18 | XMS_ITS | Encounter Summary ---
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
== END 2024-09-14 07:55 | disposition home or self-care (01) ==
LOC: ANHIMG 07:56
PROVIDERS: Visit Provider Nurse Practitioner Obstetrics & Gynecology
DX: Z12.31 Encounter for screening mammogram for malignant neoplasm of breast (principal)
CPT/HCPCS: 77063; 77067

== ENCOUNTER 2025-09-20 08:17 | Outpatient (CLI) | payer OTHER, SELFPAY ==
--- NOTE | ~2025-09-20 | MM_ITS ---
EXAMINATION: MM screening ivanna BI w khurram HISTORY: Screening. TECHNIQUE: Craniocaudal and mediolateral oblique 3-D tomosynthesis images were obtained and synthetic 2-D images were generated. CAD analysis was submitted and interpreted. COMPARISON: 2022, 2021, and 2020 BREAST PARENCHYMAL COMPOSITION: Dense: The breasts are heterogeneously dense, which may obscure small masses FINDINGS: No suspicious masses are seen. There are no suspicious calcifications. No unexplained architectural distortion is seen. There are no skin or nipple abnormalities identified. There is no adenopathy seen on the images submitted. IMPRESSION: No mammographic evidence to suggest malignancy is seen. The patient may return to screening mammography as per ACR guidelines. BI-RADS 1 - Negative. Reviewed, dictated and finalized at location A. 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
--- OUTSIDE RECORDS SUMMARY | 2025-09-20 08:25 | XMS_ITS | Encounter Summary ---
Author Organization [facility] Address [address] [place] [address] Care Team Providers Care Nail Sticker Name Role Phone Unavailable Primary Care Provider Unavailabl e Encounter Details Date Type Department Care Team (Late st Contact Info) Description 11/25/[address] 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
--- OUTSIDE RECORDS SUMMARY | 2025-09-20 08:25 | XMS_ITS | Clinical Summary ---
Author Organization [facility] Address [address] 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
--- OUTSIDE RECORDS SUMMARY | 2025-09-20 08:25 | XMS_ITS | Clinical Summary ---
Author Organization [facility] Address [address] [place] [address] Care Team Providers Care Neurosurgical Nurse Practitioner Name Role Phone Jonathan Woods MD Primary [...] 02/06/2014 Overview (12/28/2016): ALLERGIC RHINITIS NOS Immunizations Immunization Administration Dates Next Due Hep A, Adult [...] Medical History Date Comments Hx Other Medical CONCAVING MACHINE OPERATOR - Estrada; Co mments: MDDonald 02/15/2015 - Family History Medical History Relation [...] points, staff should administer the PHQ-9) 0 01/12/2025 Personal Safety Answer Date Recorded Have you ever been in or are you currently in a harmful physical or emotional relationship or is someone making you feel afraid or unsafe? 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 Gender Identity Not on file Sexual Orientation Not on file Last Filed Vital Signs Vital Sign Reading Time Taken Comments Blood Pressure 118/80 01/12/2025 4:00 PM CDT Pulse 84 01/12/2025 4:00 PM CDT Temperature 36.7 C (98 F) 04/11/2023 10:34 AM CDT Respiratory Rate 16 01/12/2025 4:00 PM CDT Oxygen Saturation 98% 01/12/2025 4:00 PM CDT Inhaled Oxygen Concentration - - Weight 74.8 kg (165 lb) 01/12/2025 4:00 PM CDT Height 162.6 cm (5' 4) 01/12/2025 4:00 PM CDT Body Mass Index 28.32 01/12/2025 4:00 PM CDT Plan of Treatment Health Maintenance Due Date Last Done Comments Hepatitis C Screening 1975 Hepatitis B Screening 1991 DTaP/Tdap/Td Vaccine (2 - Td or Tdap) 11/29/2019 11/28/2009 Cervical Cancer Screening 02/26/2020 02/25/2019 Zoster Vaccine (2 of 2) 08/30/2023 07/05/2023 Covid-19 Vaccine ( season) 2025 07/05/2023, 07/05/2023, 07/18/2022, Additional history exists Influenza Vaccine (#1) 2025 , 07/18/2022, 07/18/2022, Additional history exists Breast Cancer Screening-Mammogram 09/14/2025 09/14/2024, 08/28/2022, 02/29/2020, Additional history exists Depression Screening 01/12/2026 01/12/2025, 02/25/2023, 03/28/2021, Additional history exists Regular Well Visit/Exam 18-64 01/12/2026 01/12/2025, 02/25/2023, 03/28/2021, Additional history exists Colon Cancer Screening-Colonoscopy 04/11/2033 04/11/2023 Pneumococcal vaccine <65 Aged Out No longer eligible based on patient's age to complete this topic Procedures Procedure Name Priority Date/Time Associated Diagnosis Comments SCREENING MAMMOGRAM BILATERAL W [place] Schedule Routine, Read Routine (OP Routine) 09/14/2024 COLONOSCOPY 04/11/2023 9:22 AM CDT HM PAP SMEAR WITH HPV Routine 02/25/2019 from Last 3 Months or Most Recently Relevant to Health Maintenance Results * Screening Mammogram Bilateral W [place] (09/14/2024) Anatomical Region Laterality Modality Breast Bilateral Mammography us Generic External Data Provider IMG MAMMO PROCEDU RES Final Result * COLONOSCOPY (04/11/2023 9:22 AM CDT) Anatomical Region Laterality Modality Other Narrative Procedure Note Hernan Piña MD - 04/11/2023 9:22 AM CDT [facility] Patient Name: Vida Smart Procedure Date: 04/11/2023 9:22 AM Date of : 1975 Admit Type: Outpatient Age: 47 Gender: Female Attending MD: Hernan Piña M.D. Room: [facility] ENDOSCOPY ROOM 2 Note Status: Finalized Patient [...] by the physician, the anesthesiologist and the it technician in the endoscopy suite. MentalStatus Examination: [...] passed under direct vision.The Pediatric Colonoscope PCF-H190L [id number] was introduced through the anus and advanced [...] 9:22 AM Procedure Code(s): --- Professional --- 74632, Colonoscopy, flexible; with removal of tumor(s), polyp(s), or other lesion(s) by snare technique --- Technical --- 62905, Colonoscopy, flexible; with removal of tumor(s), polyp(s), or other lesion(s) by snare technique Diagnosis Code(s): --- Professional --- K64.8, Other hemorrhoids D12.4, Benign neoplasm of descending colon R19.5, Other fecal abnormalities --- Technical --- K64.8, Other hemorrhoids D12.4, Benign neoplasm of descending colon R19.5, Other fecal abnormalities CPT copyright 2020 [employer]. All rights reserved. The codes documented in this report are preliminary and upon agronomist reviewmay be revised to meet current compliance requirements. Recognized by the [employer] [employer] for promoting quality in endoscopy Hernan Piña MD ENDOSCOPY PROCEDURES Final Resul t * PAP SMEAR WITH HPV (02/25/2019) Pap smear Normal Historical Provider HEALTH MAINTENANCE Final Result from Last 3 Months or Most Recently Relevant to Health Maintenance Insurance [facility] CHO[facility] PLUS [facility] CHO[facility] PLUS Advance Directives For more information, please contact: [phone] * Full Code (Latest Code Status on File) Date Activated Date Inactivated Comments 04/11/2023 8:58 AM 04/11/2023 3:05 PM * Full Code Date Activated Date Inactivated Comments 04/11/2023 8:58 AM 04/11/2023 8:58 AM Care Teams Neurosurgical Nurse Practitioner Relationship Specialty Start Date End Date Jonathan Woods MD PCP - General 08/27/12
--- OUTSIDE RECORDS SUMMARY | 2025-09-20 08:25 | XMS_ITS | Clinical Summary ---
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 Gender Identity Not on file Sexual Orientation [...] 2 - Td or Tdap) 11/29/2019 11/28/2009 Pneumococcal Vaccine: 50+ Years (1 of 1 - PCV) 2023 Zoster Vaccines (1 of 2) 2023 COVID-19 Vaccine ( - 2024-2 6 season) 2025 10/25/2020, 09/27/2020 Influenza Adult (#1) 2025 07/31/2019, 07/28/2018 Hepatitis A Vaccines Aged Out 08/27/2012 No long er eligible based on patient's age to complete this topic Meningococcal B Vaccine Aged Out No l onger eligible based on patient's age to complete this topic Meningococcal Vaccine Aged Out No kayden kranthi eligible based on patient's age to complete this topic RSV Immunizations Under 20 Months Aged Out No longer eligible b ased on patient's age to complete this topic Care Teams Piercing Machine Operator Relationship Specialty Start Date End Date Non-Staff, Provider PCP - General 09/27/21
--- OUTSIDE RECORDS SUMMARY | 2025-09-20 08:25 | XMS_ITS | Encounter Summary ---
Author Organization [facility] Address 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
== END 2025-09-20 08:18 | disposition home or self-care (01) ==
LOC: ANHFOHIMG 08:19
PROVIDERS: Visit Provider Obstetrics & Gynecology
DX: Z12.31 Encounter for screening mammogram for malignant neoplasm of breast (principal)
CPT/HCPCS: 77063; 77067